=== PATIENT | female | born 1960 | race Caucasian/White ===

== ENCOUNTER 2020-04-13 11:17 | Outpatient (REF) | payer OTHER, SELFPAY ==
[2020-04-13 13:10] LABS: COVID-19 Test Negative (Negative); IDNOW Serial# 55D5AD1C
== END 2020-04-13 11:18 | disposition home or self-care (01) ==
LOC: HO.EMPCOV 11:17
PROVIDERS: Visit Provider Internal Medicine
DX: Z20.828 Contact with and (suspected) exposure to other viral communicable diseases (principal)
CPT/HCPCS: 87635; C9803

== ENCOUNTER 2020-04-27 13:25 | Outpatient (REF) | payer OTHER, SELFPAY ==
[2020-04-27 14:01] LABS: COVID-19 Test Negative (Negative); IDNOW Serial# 55D5AD1C
== END 2020-04-27 13:26 | disposition home or self-care (01) ==
LOC: HO.LAB 13:25
PROVIDERS: PCP Internal Medicine; Visit Provider Internal Medicine
DX: Z20.828 Contact with and (suspected) exposure to other viral communicable diseases (principal)
CPT/HCPCS: 87635; C9803

== ENCOUNTER 2020-05-04 09:40 | Outpatient (REF) | payer OTHER, SELFPAY ==
[2020-05-04 10:31] LABS: COVID-19 Test Negative (Negative)
== END 2020-05-04 09:41 | disposition home or self-care (01) ==
LOC: HO.EMPCOV 09:40
PROVIDERS: Visit Provider Internal Medicine
DX: Z20.828 Contact with and (suspected) exposure to other viral communicable diseases (principal)
CPT/HCPCS: 87635; C9803

== ENCOUNTER 2020-06-11 09:58 | Outpatient (REF) | payer OTHER, SELFPAY ==
[2020-06-11 10:40] LABS: COVID-19 Test Negative (Negative)
== END 2020-06-11 09:59 | disposition home or self-care (01) ==
LOC: HO.EMPCOV 09:58
PROVIDERS: PCP Internal Medicine; Visit Provider Internal Medicine
DX: Z20.822 Contact with and (suspected) exposure to COVID-19 (principal)
CPT/HCPCS: 36415; 87635; C9803

== ENCOUNTER 2020-07-10 09:11 | Outpatient (REF) | payer OTHER, SELFPAY ==
[2020-07-17 05:02] LABS: HPV mRNA E6/E7 rflx Not Detected (Not Detected)
== END 2020-07-10 09:12 | disposition home or self-care (01) ==
LOC: HO.LNP 09:11
PROVIDERS: Visit Provider Obstetrics & Gynecology
DX: Z01.419 Encounter for gynecological examination (general) (routine) without abnormal findings (principal); Z11.51 Encounter for screening for human papillomavirus (HPV)
CPT/HCPCS: 87624; 88142

== ENCOUNTER 2020-08-26 08:02 | Outpatient (REF) | payer OTHER, SELFPAY ==
[2020-08-26 08:21] LABS: COVID-19 Test Negative (Negative); IDNOW Serial# 55D5AD1C
== END 2020-08-26 08:03 | disposition home or self-care (01) ==
LOC: HO.EMPCOV 08:02
PROVIDERS: Visit Provider Internal Medicine
DX: Z20.822 Contact with and (suspected) exposure to COVID-19 (principal)
CPT/HCPCS: 36415; 87635; C9803

== ENCOUNTER 2020-11-04 07:32 | Outpatient (REF) | payer OTHER, SELFPAY ==
[2020-11-04 08:08] LABS: Hematocrit 42.4 % (37-47); Mean Corpuscular Hemoglobin 28.6 pg (27.0-33.0); Mean Corpuscular Volume 86.7 fL (80-98); Mean Platelet Volume 11.3 fL (9.4-12.3); Platelet Count 213 X10*3/uL (160-400); Red Blood Count 4.89 X10*6/uL (4.20-5.50); Red Cell Distribution Width 14.6 % (11.0-16.0); White Blood Count 6.4 X10*3/uL (4.8-10.8)
[2020-11-04 08:30] LABS: Alanine Aminotransferase 14 U/L (0-31); Albumin Level 4.2 g/dL (3.5-5.0); Alkaline Phosphatase 112 U/L (39-117); Anion Gap 11 (12-20); Aspartate Amino Transferase 16 U/L (5-31); Bilirubin Total 0.3 mg/dL (0.0-1.0); Blood Urea Nitrogen 23 mg/dL (9-16); Calcium 9.1 mg/dL (8.4-10.2); Carbon Dioxide 25 mmol/L (22-29); Chloride 108 mmol/L (96-108); Cholesterol 188 mg/dL; Estimated Glomerular Filt Rate 56; Glucose Fasting 85 mg/dL (60-99); HDL Cholesterol 66 mg/dL; LDL Cholesterol Calculated 102 mg/dl; Potassium 4.4 mmol/L (3.3-5.1); Sodium 140 mmol/L (135-145); Triglycerides 102 mg/dL
[2020-11-04 08:37] LABS: Glucose Urine UA NEG (NEG); Leukocyte Esterase Urine 1+ (NEG); Nitrite Urine NEG (NEG); Urine Blood NEG (NEG); Urine Ketones NEG (NEG); Urine Protein TRACE MG/DL (NEG-TRACE)
[2020-11-04 08:42] LABS: Appearance Urine CLEAR; Color Urine YELLOW
[2020-11-04 08:45] LABS: Thyroid Stimulating Hormone 1.72 uIU/mL (0.32-4.0)
[2020-11-04 09:14] LABS: Bacteria Urine TRACE /LPF; Squamous Epithelial Cell Urine 1+ /LPF
== END 2020-11-04 07:33 | disposition home or self-care (01) ==
LOC: HO.LAB 07:32
PROVIDERS: PCP Internal Medicine; Visit Provider Internal Medicine
DX: Z00.00 Encounter for general adult medical examination without abnormal findings (principal); E78.00 Pure hypercholesterolemia, unspecified; E03.9 Hypothyroidism, unspecified
CPT/HCPCS: 36415; 80053; 80061; 81001; 81003; 84443; 85027

== ENCOUNTER 2020-11-04 15:29 | Outpatient (REF) | payer OTHER, SELFPAY ==
--- NOTE | ~2020-11-04 | MM_ITS ---
EXAMINATION: MM SCREENING DIGITAL BREAST TOMOSYNTHESIS, BILATERAL CLINICAL INFORMATION: Screening. Asymptomatic. The lifetime risk of breast cancer based on the Tyrer-Cuzick Model is 4.5%. COMPARISON: Mammography: August 10, 2019 and studies dating back to February 17, 2012 TECHNIQUE: Digital breast tomosynthesis is performed in both the craniocaudal and mediolateral oblique views along with computer-aided detection (CAD). Synthesized 2D images are generated from the tomosynthesis. FINDINGS: The breasts are almost entirely fatty (ACR BI-RADS breast composition Category a). There are no significant masses, abnormal calcifications, or other abnormalities. MM/MM tomosynthesis screening BI IMPRESSION: There are no significant changes from prior study. ASSESSMENT: BI-RADS 1: Negative RECOMMENDATION: Routine annual mammography screening. This patient's information was entered into a reminder system with a target due date for their next mammogram.
== END 2020-11-04 15:30 | disposition home or self-care (01) ==
LOC: HO.MAMMO 15:29
PROVIDERS: PCP Internal Medicine; Visit Provider Obstetrics & Gynecology
DX: Z12.31 Encounter for screening mammogram for malignant neoplasm of breast (principal)
CPT/HCPCS: 77063; 77067

== ENCOUNTER → 2021-01-15 15:29 | Outpatient (BNVA) | payer OTHER, SELFPAY | PROVIDERS: PCP Internal Medicine; Visit Provider Nurse Practitioner Family ==

== ENCOUNTER → 2021-02-22 10:09 | Outpatient (BNVA) | payer SELFPAY | PROVIDERS: PCP Internal Medicine; Visit Provider Physician Assistant Medical ==

== ENCOUNTER 2021-03-16 07:51 | Day surgery (SDC) | payer OTHER, SELFPAY ==
--- NOTE | 2021-03-15 08:27 | HO.ANESPROP2 ---
Documented by User: Mariann Webb NP 03/15/21 08:28 HPI - Anesthesia Eval Consult details Narrative: 60yo F for Colonoscopy PMFSH Active Problems Active Problems: All Active Problems (Updated 03/10/21 @ 14:59 by Fransisca Banegas, SARAH) Hypothyroidism (Acute) Hypercholesterolemia (Acute) Annual physical exam (Acute) Past Medical History Medical History Adenocarcinoma of rectosigmoid junction Annual physical exam CKD (chronic kidney disease), stage III History of mammogram History of positive PPD Hypercholesterolemia Hypothyroidism Family History Family History Father Diabetes Mother Ruptured, aorta Surgical History Surgical History H/O colonoscopy Hx of bilateral breast reduction surgery S/P appy Social History Social History Housing: House Alcohol intake: current Alcohol intake frequency: holidays/special occasions only Patient Tobacco Use Status: Never used Tobacco e-Cigarette/Vaping Use: Never Used Second Hand Smoke Exposure: Yes Advance Directives: No Advance Directives Information Provided: Yes Current occupational status: employed Meds Allergies Allergy/AdvReac Type Severity Reaction Status Date / Time No Known Allergies Allergy Verified 02/27/21 09:45 Home Medications Medication Instructions Recorded Confirmed Last Taken Type tzfriizogakz-Yz-lvep-minerals (One 1 tab PO DAILY 02/27/21 03/10/21 Unknown History Daily Calcium/Iron) vitamins A,C,S-cstk-mhatym 14,320 1 cap PO BID 02/27/21 03/10/21 Unknown History unit-226 mg-200 unit capsule (PreserVision AREDS) Exam Exam Date and Time: March 15, [id number] Pertinent Lab Results Pertinent Lab Results: Laboratory Tests 11/04/20 11/04/20 07:07 07:07 WBC 6.4 Hgb 14.0 Hct 42.4 Plt Count 213 Sodium 140 Potassium 4.4 Chloride 108 Carbon Dioxide 25 BUN 23 H Creatinine 1.01 Assessment and Plan Assessment Anesthesia Assessment: Chart Reviewed Documented by User: Beba Chamorro MD 03/16/21 08:16 PMFSH Past Medical History Medical History Adenocarcinoma of rectosigmoid junction Annual physical exam CKD (chronic kidney disease), stage III History of mammogram History of positive PPD Hypercholesterolemia Hypothyroidism Family History Family History Father Diabetes Mother Ruptured, aorta Surgical History Surgical History H/O colonoscopy Hx of bilateral breast reduction surgery S/P appy Social History Social History Housing: House Alcohol intake: current Alcohol intake frequency: holidays/special occasions only Patient Tobacco Use Status: Never used Tobacco e-Cigarette/Vaping Use: Never Used Second Hand Smoke Exposure: Yes Advance Directives: No Advance Directives Information Provided: Yes Current occupational status: employed Meds Allergies Allergy/AdvReac Type Severity Reaction Status Date / Time No Known Allergies Allergy Verified 02/27/21 09:45 Home Medications Medication Instructions Recorded Confirmed Last Taken Type hubympmtprbj-Jv-qdoj-minerals (One 1 tab PO DAILY 02/27/21 03/10/21 Unknown History Daily Calcium/Iron) vitamins A,C,C-cfeb-jmeuxw 14,320 1 cap PO BID 02/27/21 03/10/21 Unknown History unit-226 mg-200 unit capsule (PreserVision AREDS) Exam Airway Mallampati Class: II TM Dist: >3cm Neck ROM: Full
[2021-03-16 08:14] VITALS: BP 137/77; PULSE 82; RESP 16; TEMP 35.9; O2SAT 97; BMI 23.6
--- NOTE | 2021-03-16 08:23 | MHC.SHP ---
Pre-Procedural Eval Section A Date of Service: 03/16/21 The patient is an INPATIENT: No The History & Physical has been completed within 30 days and I have reviewed it.: No Section B Chief Complaint: Screening Details of Present Illness: Colon cancer screening Relevant Family History (Specify if Yes): No Relevant Social History: None Present Medications: see Short Stay Collaborative assessment Medical History: Significant History (Adenocarcinoma of rectosigmoid junction Annual physical exam CKD (chronic kidney disease), stage III History of mammogram Hypercholesterolemia Hypothyroidism) History of Previous Operations: Relevant previous surgery/procedure and date(s) (H/O colonoscopy Hx of bilateral breast reduction surgery S/P appy) Allergies: Allergies Allergy/AdvReac Type Severity Reaction Status Date / Time No Known Allergies Allergy Verified 02/27/21 09:45 Review of Systems Sugical H&P ROS: Negative: Constitution, Cardiovascular, Respiratory and Gastrointestinal Exam Surgical H&P Exam: Normal: Heart, Normal: Lungs, Normal: Extremities and Normal: Abdomen Plan Diagnosis/Plan: Unchanged I have reviewed the history and physical and performed a pertinent physical examination on my patient. No changes have occurred unless specified.
[2021-03-16] MEDS: Lactated Ringers 1,000 ML 100 ML IVCONT (08:24)
--- NOTE | 2021-03-16 08:25 | PC.NURSE ---
h/o CKD stage 3, Dr Jones aware, continue with IV LR,
--- NOTE | 2021-03-16 08:25 | W.PM.OPN ---
Operative Note Operative Note Date of Service: 03/16/21 Narrative: Pre-op diagnosis:?Colon cancer screening, history of colon polyps, history of adenocarcinoma arising in a polyp in 2013 Post-op diagnosis:?other (Colon polyp, diverticulosis, hemorrhoids) Procedure:? COLONOSCOPY TILL CECUM WITH SNARE POLYPECTOMY AND SUBMUCOSAL INJECTION Consent: Indications for the procedure and potential complications of bleeding, perforation, reaction to medications and missed diagnosis were discussed with the patient and informed consent was obtained. Instrument: Olympus PCF H 190 L variable stiffness pediatric colonoscope Monitoring: Vital signs and clinical assessment, intermittent blood pressure monitoring, continuous EKG monitoring, Pulse oximetry and Carbon Dioxide monitoring were done throughout the procedure. Colon withdrawl time was 25 minutes. Procedure: The patient was placed in the left lateral decubitis position and pre-procedure medications were administered. After a digital rectal examination of the ano-rectum, the video colonoscope was inserted into the rectum and advanced through the colon to the cecum. The colonoscope was slowly withdrawn in a retrograde panoramic fashion and the colon mucosa was carefully examined including a retroflexed view of the rectum. Findings and interventions are described below. Procedure Difficulty:? Colon was long and tortuous and there was some loop formation. A sharp turn at 25 cms was navigated with some difficulty Findings: Terminal Ileum: Not evaluated Cecum:? Normal Ascending Colon:? A 2 x 2 cms flat polyp at 75 cms (mid AC) raised with 10 cc of Orise solution (submucosal injection) and removed with a hot snare.? Polypectomy site was marked with Candis ink. ? Scattered moderate diverticulosis Transverse Colon:? Scattered moderate diverticulosis Descending Colon:? Scattered moderate diverticulosis Sigmoid Colon:? Severe diverticulosis with luminal narrowing Rectum:? Normal Ano-rectum:? Large internal hemorrhoids Colon preparation:? Good? Impression and Post Procedure Diagnosis: Colonoscopy Findings: One medium sized polyp removed Moderate diverticulosis seen in the entire colon Large hemorrhoids on retroflexed exam. Plan: Await pathology results Patient has an appointment on 04/16/21 in the GI Clinic with ? Adelia Collier FNP-ANA . Repeat Colonoscopy interval based on path results - in 1 years if polyp is adenomatous to check polypectomy site in the AC.. Above findings were reviewed with the patient and colon polyps and diverticulosis handouts were given in the discharge area Surgeon:?Alonso Roberto MD Anesthesia:?MAC Was an Hand Cigar Maker used for this Procedure?:?Yes Hand Cigar Maker:?Tiera Cochran Estimated blood loss (mL):?0 Pathology:?other ( A. ASCENDING COLON POLYP AT 75 WITH ORISE) Condition:?stable Disposition:?PACU
[2021-03-16 09:46] VITALS: BP 111/64; PULSE 74; RESP 20; TEMP 36.9; O2SAT 98
[2021-03-16 10:00] VITALS: BP 118/79; PULSE 71; RESP 20; O2SAT 99
[2021-03-16 10:15] VITALS: BP 128/80; PULSE 74; RESP 20; TEMP 36.9; O2SAT 99
== END 2021-03-16 11:50 | disposition home or self-care (01) ==
PROVIDERS: PCP Internal Medicine; Visit Provider Internal Medicine Gastroenterology
PROC: 0DJD8ZZ Inspection of Lower Intestinal Tract, Via Natural or Artificial Opening Endoscopic (ICD-10-PCS; CPT 45378; principal; 2021-03-16 09:00)
DX: Z12.11 Encounter for screening for malignant neoplasm of colon (principal); Z85.038 Personal history of other malignant neoplasm of large intestine; Z86.010 Personal history of colon polyps; D12.4 Benign neoplasm of descending colon; K57.30 Diverticulosis of large intestine without perforation or abscess without bleeding; K64.8 Other hemorrhoids; N18.30 Chronic kidney disease, stage 3 unspecified; E78.00 Pure hypercholesterolemia, unspecified; E03.9 Hypothyroidism, unspecified; Z79.899 Other long term (current) drug therapy
CPT/HCPCS: 45385; 45381; 88305

== ENCOUNTER → 2021-05-17 08:15 | Outpatient (BNVA) | payer OTHER, SELFPAY | PROVIDERS: PCP Internal Medicine; Referring Provider Internal Medicine; Visit Provider Nurse Practitioner Family ==

== ENCOUNTER 2021-07-12 09:30 | Outpatient (REF) | payer OTHER, SELFPAY | END 2021-07-12 09:31 | disposition home or self-care (01) | LOC: HO.LNP 09:30 | PROVIDERS: Visit Provider Obstetrics & Gynecology | DX: Z01.419 Encounter for gynecological examination (general) (routine) without abnormal findings (principal) | CPT/HCPCS: 88142 ==

== ENCOUNTER 2021-08-16 11:52 | Outpatient (REF) | payer OTHER, SELFPAY | END 2021-08-16 11:53 | disposition home or self-care (01) | LOC: HO.LNP 11:52 | PROVIDERS: Visit Provider Obstetrics & Gynecology | DX: R87.615 Unsatisfactory cytologic smear of cervix (principal) | CPT/HCPCS: 87624; 88142 ==

== ENCOUNTER 2021-09-14 06:50 | Emergency (ER) | payer OTHER, SELFPAY ==
--- NOTE | ~2021-09-14 | XR_ITS ---
EXAMINATION: XR CHEST CLINICAL INFORMATION: Covid positive. Syncope. COMPARISON: Previous chest x-ray from 2012 TECHNIQUE: Frontal view of the chest was obtained. FINDINGS: No significant abnormality is noted involving the heart, lungs, mediastinum, bony thorax or soft tissues. XR/XR chest 1V IMPRESSION: Unremarkable examination.
[2021-09-14 07:16] VITALS: BP 126/84; PULSE 99; RESP 16; TEMP 37.2; O2SAT 96; BMI 23.4
[2021-09-14 07:44] LABS: COVID-19 Test Positive (Negative)
[2021-09-14 07:53] LABS: IDNOW Serial# 16C4AD1C; Influenza A Negative (Negative); Influenza B2 Negative (Negative)
--- NOTE | 2021-09-14 07:59 | ECG_ITS ---
Test Reason : SYNCOPE Blood Pressure : / mmHG Vent. Rate : 096 BPM Atrial Rate : 096 BPM P-R Int : 120 ms QRS Dur : 074 ms QT Int : 332 ms P-R-T Axes : 038 021 011 degrees QTc Int : 419 ms Normal sinus rhythm Normal ECG When compared with ECG of 04-MAY-2012 10:12, No significant change was found Referred By: Iva Varela Electronically Signed By:LISETTE ESPAÑA MD
--- NOTE | 2021-09-14 08:00 | ED_ITS ---
HPI - General Adult General Chief complaint: General Medical Stated complaint: dizzy & nauseas, headache, sore throat Time Seen by Provider: 09/14/21 07:59 Source: patient and family () Mode of arrival: ambulatory Limitations: no limitations History of Present Illness HPI narrative: 61-year-old female walked in for evaluation after having syncope fall episode. Patient's symptoms started 2 days ago with sore throat, body ache, headache, generalized weakness. Patient took 2 COVID vaccination and 1 booster, decline recent exposure to sick contacts. Claim that she has been hydrating herself well, decline diarrhea. Patient was having breakfast with her today when she felt lightheadedness then she passed out patient do not recall the event. Patient had this symptoms happen before when she had sinus infection. Otherwise patient declined SOB, CP, coughing, nausea, or vomiting. Related Data Home Medications Medication Instructions Recorded Confirmed vfrbgkxxqysv-Km-wbrb-minerals (One 1 tab PO DAILY 02/27/21 03/10/21 Daily Calcium/Iron) vitamins A,C,N-pwty-jdakpw 14,320 1 cap PO BID 02/27/21 03/10/21 unit-226 mg-200 unit capsule (PreserVision AREDS) Previous Rx's Medication Instructions Recorded levothyroxine 50 mcg tablet 75 mcg PO DAILY #135 tab 07/27/21 atorvastatin 20 mg tablet 20 mg PO DAILY #90 tab 09/13/21 Allergies Allergy/AdvReac Type Severity Reaction Status Date / Time No Known Allergies Allergy Verified 05/17/21 08:32 Review of Systems Review of Systems: All other systems are reviewed and are negative Constitutional: Reports as per HPI and Reports no additional constitutional complaints Eyes: Reports as per HPI and Reports no additional eye complaints Reports system reviewed and no additional complaints, except as documented Cardiovascular: Reports as per HPI and Reports no additional cardiovascular complaints Respiratory: Reports as per HPI and Reports no additional respiratory complaints Gastrointestinal: Reports as per HPI and Reports no additional gastrointestinal complaints Genitourinary: Reports no additional female genitourinary complaints Musculoskeletal: Reports no additional musculoskeletal complaints Skin/Breast: Reports system reviewed and no additional complaints, except as docu Psychiatric: Reports no additional psychiatric complaints Endocrine: Reports no additional endocrine complaints Hematologic/Lymphatic: Reports no additional hematologic/lymphatic complaints Allergic/Immunologic: Reports no additional allergic/immunologic complaints Reports system reviewed and no additional complaints, except as documented and Reports Abnormal speech present PMFSH Past Medical History Medical History Adenocarcinoma of rectosigmoid junction Annual physical exam CKD (chronic kidney disease), stage III History of mammogram History of positive PPD Hypercholesterolemia Hypothyroidism Surgical History H/O colonoscopy Hx of bilateral breast reduction surgery S/P appy Family History Family History Father Diabetes Mother Ruptured, aorta Social History Social History Housing: House Alcohol intake: current Alcohol intake frequency: holidays/special occasions only Patient Tobacco Use Status: Never used Tobacco e-Cigarette/Vaping Use: Never Used Second Hand Smoke Exposure: Yes Advance Directives: No Advance Directives Information Provided: No Current occupational status: employed Physical Exam ED Vital Signs: Vital Signs - 24 hr 09/14/21 07:16 09/14/21 09:07 Temperature 98.9 F Pulse Rate 99 85 Respiratory Rate 16 16 Blood Pressure 126/84 129/92 H Pulse Oximetry 96 98 BMI result Body Mass Index 23.4 Vital signs have been reviewed as appeared to be correct. Blood pressure normal. Heart rate normal. Respiration rate normal. Temperature normal. Oxygen saturation normal. Appearance: Alert. Oriented X3. No acute distress. Head: Normal external exam. Normocephalic. Atraumatic. No Saleh signs noted. No raccoon eyes noted Eyes: PERRLA. EOMI. Conjunctiva and sclera normal. Eyelids normal. ENT: TM's Normal. Pharynx normal. Uvula midline. Moist mucous membranes. No trismus noted. No drooling noted. No muffled voice noted. Neck: Normal inspection. Neck supple. FROM. No adenopathy. Thyroid Normal. No meningeal signs. No neck mass noted. CVS: Normal heart rate and rhythm. Heart sound normal. No murmurs noted. Pulses normal throughout. Respiratory: No respiratory distress. Painless inspiration. Breath sounds normal. No wheezes/rales/rhonchi noted. Chest nontender. No accessory muscle usage noted or decreased air movement noted. Abdomen: Soft and nontender. Bowel sounds normal in all 4 quadrants. No distention noted. No organomegaly noted. No visible injury noted. Back: No CVA tenderness. Full range of motion noted. Skin: Skin warm and dry. Normal skin color. Normal skin turgor. No rashes/lesions/lacerations noted. Extremities: No lower extremity edema. Extremities exhibit normal range of motion. Extremities nontender. Neuro: Oriented X 3. Cranial nerve exam: II-XII are grossly intact No motor deficit. No sensory deficit. Reflexes normal. Course Course Course Narrative: Assessment and plan. 61-year-old female came in for evaluation after a syncopal episode this morning witnessed by her , patient also had 2 days of flu-like symptoms and patient tested positive for COVID, otherwise stable vital signs, patient feels better after IV fluid hydration, unremarkable EKG and cardiac enzymes. Patient was instructed to have 10 days quarantine (patient work and health care), frequent hand washing, use face mask, keep social distancing. Medical Decision Making Lab Data Lab results reviewed: Yes I reviewed the patient's lab results. Result diagrams: 09/14/21 09:06 09/14/21 09:06 Labs: Lab Results 09/14/21 09/14/21 09/14/21 Range/Units 07:27 07:27 09:06 WBC 8.0 (4.8-10.8) X10*3/uL RBC 5.06 (4.20-5.50) X10*6/uL Hgb 14.4 (12.0-16.0) g/dl Hct 43.5 (37.0-47.0) % MCV 86.0 (80.0-98.0) fL MCH 28.5 (27.0-33.0) pg MCHC 33.1 (31.0-35.0) g/dl RDW 15.1 (11.0-16.0) % Plt Count 201 (160-400) X10*3/uL MPV 11.1 (9.4-12.3) fL Immature Gran % (Auto) 0.4 (0.0-0.4) % Neut % (Auto) 77.8 H (45-73) % Lymph % (Auto) 12.1 L (20-40) % Patrick % (Auto) 8.5 (2-11) % Eos % (Auto) 0.7 (0-4) % Baso % (Auto) 0.5 (0-2) % Lymph # (Auto) 1.0 L (1.2-4.9) X10*3/uL Patrick # (Auto) 0.7 (0.1-1.2) X10*3/uL Eos # (Auto) 0.1 (0.0-0.4) X10*3/uL Baso # (Auto) 0.0 (0.0-0.2) X10*3/uL Abs Immat Gran (auto) 0.03 (0.00-0.03) X10*3/uL Absolute Neuts (auto) 6.2 (2.0-8.3) x10*3/uL Absolute Nucleated RBC 0.000 (0.0-0.012) X10*3/uL Nucleated RBC % (auto) 0.0 (0.0-0.2) /100WBC Sodium (135-145) mmol/L Potassium (3.3-5.1) mmol/L Chloride (96-108) mmol/L Carbon Dioxide (22-29) mmol/L Anion Gap (12-20) BUN (9-16) mg/dL Creatinine (0.5-1.4) mg/dL Estim Creat Clear Calc Estimated GFR Random Glucose (60-115) mg/dL Calcium (8.4-10.2) mg/dL Total Bilirubin (0.0-1.0) mg/dL Direct Bilirubin (0.0-0.5) mg/dL AST (5-31) U/L ALT (0-31) U/L Alkaline Phosphatase (39-117) U/L Troponin I High Sens (<3.5-17.0) ng/L Total Protein (6.5-8.0) g/dL Albumin (3.5-5.0) g/dL Lipase (8-78) U/L Urine Color Urine Appearance Urine pH (5.0-8.0) Ur Specific [place] (1.005-1.025) Urine Protein (NEG-TRACE) MG/DL Urine Glucose (UA) (NEG) MG/DL Urine Ketones (NEG) MG/DL Urine Blood (NEG) Urine Nitrite (NEG) Ur Leukocyte Esterase (NEG) Urine Test (NEGATIVE) COVID-19 (AWILDA) Positive A (Negative) COVID-19 Clin Com See Note Influenza Type A (APRIL) Negative (Negative) Influenza Type B (APRIL) Negative (Negative) Influenza A & B Note See Note 09/14/21 09/14/21 09/14/21 Range/Units 09:06 09:06 09:18 WBC (4.8-10.8) X10*3/uL RBC (4.20-5.50) X10*6/uL Hgb (12.0-16.0) g/dl Hct (37.0-47.0) % MCV (80.0-98.0) fL MCH (27.0-33.0) pg MCHC (31.0-35.0) g/dl RDW (11.0-16.0) % Plt Count (160-400) X10*3/uL MPV (9.4-12.3) fL Immature Gran % (Auto) (0.0-0.4) % Neut % (Auto) (45-73) % Lymph % (Auto) (20-40) % Patrick % (Auto) (2-11) % Eos % (Auto) (0-4) % Baso % (Auto) (0-2) % Lymph # (Auto) (1.2-4.9) X10*3/uL Patrick # (Auto) (0.1-1.2) X10*3/uL Eos # (Auto) (0.0-0.4) X10*3/uL Baso # (Auto) (0.0-0.2) X10*3/uL Abs Immat Gran (auto) (0.00-0.03) X10*3/uL Absolute Neuts (auto) (2.0-8.3) x10*3/uL Absolute Nucleated RBC (0.0-0.012) X10*3/uL Nucleated RBC % (auto) (0.0-0.2) /100WBC Sodium 138 (135-145) mmol/L Potassium 4.7 (3.3-5.1) mmol/L Chloride 104 (96-108) mmol/L Carbon Dioxide 27 (22-29) mmol/L Anion Gap 12 (12-20) BUN 19 H (9-16) mg/dL Creatinine 1.13 (0.5-1.4) mg/dL Estim Creat Clear Calc 38.4 Estimated GFR 49 Random Glucose 98 (60-115) mg/dL Calcium 9.7 D (8.4-10.2) mg/dL Total Bilirubin 0.5 (0.0-1.0) mg/dL Direct Bilirubin 0.2 (0.0-0.5) mg/dL AST 30 D (5-31) U/L ALT 34 H (0-31) U/L Alkaline Phosphatase 119 H (39-117) U/L Troponin I High Sens 5.9 (<3.5-17.0) ng/L Total Protein 7.2 (6.5-8.0) g/dL Albumin 4.2 (3.5-5.0) g/dL Lipase 30 (8-78) U/L Urine Color YELLOW Urine Appearance CLEAR Urine pH 7.0 (5.0-8.0) Ur Specific [place] <= 1.005 (1.005-1.025) Urine Protein NEG (NEG-TRACE) MG/DL Urine Glucose (UA) NEG (NEG) MG/DL Urine Ketones NEG (NEG) MG/DL Urine Blood NEG (NEG) Urine Nitrite NEG (NEG) Ur Leukocyte Esterase NEG (NEG) Urine Test (NEGATIVE) COVID-19 (AWILDA) (Negative) COVID-19 Clin Com Influenza Type A (APRIL) (Negative) Influenza Type B (APRIL) (Negative) Influenza A & B Note 09/14/21 Range/Units 09:18 WBC (4.8-10.8) X10*3/uL RBC (4.20-5.50) X10*6/uL Hgb (12.0-16.0) g/dl Hct (37.0-47.0) % MCV (80.0-98.0) fL MCH (27.0-33.0) pg MCHC (31.0-35.0) g/dl RDW (11.0-16.0) % Plt Count (160-400) X10*3/uL MPV (9.4-12.3) fL Immature Gran % (Auto) (0.0-0.4) % Neut % (Auto) (45-73) % Lymph % (Auto) (20-40) % Patrick % (Auto) (2-11) % Eos % (Auto) (0-4) % Baso % (Auto) (0-2) % Lymph # (Auto) (1.2-4.9) X10*3/uL Patrick # (Auto) (0.1-1.2) X10*3/uL Eos # (Auto) (0.0-0.4) X10*3/uL Baso # (Auto) (0.0-0.2) X10*3/uL Abs Immat Gran (auto) (0.00-0.03) X10*3/uL Absolute Neuts (auto) (2.0-8.3) x10*3/uL Absolute Nucleated RBC (0.0-0.012) X10*3/uL Nucleated RBC % (auto) (0.0-0.2) /100WBC Sodium (135-145) mmol/L Potassium (3.3-5.1) mmol/L Chloride (96-108) mmol/L Carbon Dioxide (22-29) mmol/L Anion Gap (12-20) BUN (9-16) mg/dL Creatinine (0.5-1.4) mg/dL Estim Creat Clear Calc Estimated GFR Random Glucose (60-115) mg/dL Calcium (8.4-10.2) mg/dL Total Bilirubin (0.0-1.0) mg/dL Direct Bilirubin (0.0-0.5) mg/dL AST (5-31) U/L ALT (0-31) U/L Alkaline Phosphatase (39-117) U/L Troponin I High Sens (<3.5-17.0) ng/L Total Protein (6.5-8.0) g/dL Albumin (3.5-5.0) g/dL Lipase (8-78) U/L Urine Color Urine Appearance Urine pH (5.0-8.0) Ur Specific [place] (1.005-1.025) Urine Protein (NEG-TRACE) MG/DL Urine Glucose (UA) (NEG) MG/DL Urine Ketones (NEG) MG/DL Urine Blood (NEG) Urine Nitrite (NEG) Ur Leukocyte Esterase (NEG) Urine Test NEGATIVE (NEGATIVE) COVID-19 (AWILDA) (Negative) COVID-19 Clin Com Influenza Type A (APRIL) (Negative) Influenza Type B (APRIL) (Negative) Influenza A & B Note Imaging Data Chest x-ray: Attestation: I personally reviewed and interpreted this imaging study as follows: Radiologist's impression: Unremarkable examination ECG Data Attestation: I personally reviewed and interpreted this ECG as follows: Interpretation: Normal sinus rhythm at 96 beats per minute, normal axis deviation, normal intervals, no ST-T changes. Discharge Plan Discharge Clinical Impression: Syncope and collapse, COVID-19 virus infection Patient Disposition: Home, Self-Care Instructions: Covid-19 Viral Syndrome and Novel Coronavirus (ED) Hey/Ath Additional Instructions: Self quarantine for 10 days, use face mask at all times, frequent hand washing, keep social distancing with others. Prescriptions: No Action levothyroxine 50 mcg tablet 75 mcg PO DAILY Qty: 135 3RF atorvastatin 20 mg tablet 20 mg PO DAILY Qty: 90 3RF One Daily Calcium/Iron Tablet 1 tab PO DAILY 0RF PreserVision AREDS [id number] lfwv-yr-bzsj capsule 1 cap PO BID 0RF Referrals: Ashly Diaz MD [Primary Care Provider] - Stand Alone Forms: Work/School Release
[2021-09-14 09:07] VITALS: BP 129/92; PULSE 85; RESP 16; O2SAT 98
[2021-09-14] MEDS: 0.9 % Sodium Chloride 1,000 ML 999 ML IV (09:07)
[2021-09-14 09:13] LABS: MANUAL DIFF FLAG NO
[2021-09-14 09:15] LABS: Basophils Percent Auto 0.5 % (0-2); Eosinophils Absolute Auto 0.1 X10*3/uL (0.0-0.4); Eosinophils Percent Auto 0.7 % (0-4); Hematocrit 43.5 % (37.0-47.0); Hemoglobin 14.4 g/dl (12.0-16.0); Imm Gran Abs Auto 0.03 X10*3/uL (0.00-0.03); Imm Gran Pct Auto 0.4 % (0.0-0.4); Lymphocytes Percent Auto 12.1 % (20-40); Mean Corpuscular HGB Conc 33.1 g/dl (31.0-35.0); Mean Corpuscular Hemoglobin 28.5 pg (27.0-33.0); Mean Platelet Volume 11.1 fL (9.4-12.3); Monocytes Absolute Auto 0.7 X10*3/uL (0.1-1.2); Monocytes Percent Auto 8.5 % (2-11); Neutrophils Absolute Auto 6.2 x10*3/uL (2.0-8.3); Neutrophils Percent Auto 77.8 % (45-73); Platelet Count 201 X10*3/uL (160-400); Red Blood Count 5.06 X10*6/uL (4.20-5.50); Red Cell Distribution Width 15.1 % (11.0-16.0)
[2021-09-14] MEDS: Ibuprofen 600 MG TABLET PO (09:15)
[2021-09-14 09:26] LABS: Appearance Urine CLEAR; Color Urine YELLOW; Glucose Urine UA NEG (NEG); Leukocyte Esterase Urine NEG (NEG); Nitrite Urine NEG (NEG); Specific Gravity - Urine <= 1.005 (1.005-1.025); Urine Blood NEG (NEG); Urine Ketones NEG (NEG); Urine Protein NEG (NEG-TRACE)
[2021-09-14 09:29] LABS: UPreg QC Valid YES; Urine Pregnancy NEGATIVE (NEGATIVE)
[2021-09-14 09:32] LABS: Alanine Aminotransferase 34 U/L (0-31); Albumin Level 4.2 g/dL (3.5-5.0); Alkaline Phosphatase 119 U/L (39-117); Anion Gap 12 (12-20); Aspartate Amino Transferase 30 U/L (5-31); Bilirubin Direct 0.2 mg/dL (0.0-0.5); Bilirubin Total 0.5 mg/dL (0.0-1.0); Blood Urea Nitrogen 19 mg/dL (9-16); Calcium 9.7 mg/dL (8.4-10.2); Carbon Dioxide 27 mmol/L (22-29); Chloride 104 mmol/L (96-108); Creatinine Clr Calc Pharmacy 38.4; Estimated Glomerular Filt Rate 49; Glucose Random 98 mg/dL (60-115); Lipase 30 U/L (8-78); Potassium 4.7 mmol/L (3.3-5.1); Sodium 138 mmol/L (135-145); Total Protein 7.2 g/dL (6.5-8.0)
[2021-09-14 09:36] LABS: Troponin-I High Sensitivity 5.9 ng/L (<3.5-17.0)
--- NOTE | 2021-09-14 10:26 | PC.NURSE ---
NO RESPIRATORY DIFFICULTIES. SHE WAS STEADY WITH HER GAIT TO THE BATHROOM X2. DENIED DIZZINESS
[2021-09-14 10:37] LABS: B Type Natriuretic Peptide 28 pg/mL (<100)
== END 2021-09-14 10:27 | disposition home or self-care (01) ==
PROVIDERS: Emergency Provider Emergency Medicine; PCP Internal Medicine
DX: U07.1 COVID-19 (principal); R55 Syncope and collapse; R06.02 Shortness of breath; Z79.899 Other long term (current) drug therapy
CPT/HCPCS: 36415; 71045; 80048; 80076; 81003; 81025; 83690; 83880; 84484; 85025; 87502; 87635; 93005; 96360; 99284

== ENCOUNTER 2021-11-08 15:31 | Outpatient (REF) | payer OTHER, SELFPAY ==
--- NOTE | ~2021-11-08 | MM_ITS ---
EXAMINATION: MM SCREENING DIGITAL BREAST TOMOSYNTHESIS, BILATERAL CLINICAL INFORMATION: Screening. Asymptomatic. Remote reduction mammoplasty, 1995. Family history breast cancer, sister. The lifetime risk of breast cancer based on the Tyrer-Cuzick Model is 14%. COMPARISON: Mammography: 11/04/2020, 08/10/2019, 04/16/2018 TECHNIQUE: Digital breast tomosynthesis is performed in both the craniocaudal and mediolateral oblique views along with computer-aided detection (CAD). Synthesized 2D images are generated from the tomosynthesis. FINDINGS: The breasts are almost entirely fatty (ACR BI-RADS breast composition Category a). Background stromal and fibroglandular densities and minor scarring from remote mammoplasty are stable. There is no developing density or architectural abnormality. No abnormal calcifications. The axilla are unremarkable. MM/MM tomosynthesis screening BI IMPRESSION: No mammographic evidence of malignancy. ASSESSMENT: BI-RADS 1: Negative RECOMMENDATION: Routine annual mammography screening. This patient's information was entered into a reminder system with a target due date for their next mammogram.
== END 2021-11-08 15:32 | disposition home or self-care (01) ==
LOC: HO.MAMMO 15:31
PROVIDERS: PCP Internal Medicine; Visit Provider Obstetrics & Gynecology
DX: Z12.31 Encounter for screening mammogram for malignant neoplasm of breast (principal)
CPT/HCPCS: 77063; 77067

== ENCOUNTER 2021-12-02 06:44 | Emergency (ER) | payer OTHER, SELFPAY ==
[2021-12-02 06:47] VITALS: BP 134/84; PULSE 111; O2SAT 96
[2021-12-02 06:51] VITALS: BP 131/110; PULSE 99; RESP 18; TEMP 36.4; O2SAT 100; BMI 23.8
--- NOTE | 2021-12-02 06:55 | ED_ITS ---
HPI - Back Pain/Injury General Chief Complaint: Back Pain/Injury Stated Complaint: back spasms Time Seen by Provider: 12/02/21 06:47 Source: patient and old records reviewed Mode of arrival: EMS Limitations: no limitations History of Present Illness HPI Narrative: 61 yo female with hx of HLD, hypothyroidism, prior back issues, localized colon cancer 2013 (treated) with frequent colonoscopy surveillance no systemic treatment states she went to reach for something Monday and through her back into spasm. She denies IVDA, no blood thinners, no bowel or bladder incontinence. Has had similar issues in the past. Taking tylenol without relief. MD elicited complaint: back pain and back injury Pertinent past history: prior back pain Onset (ago): day(s) (4) Timing: progressively worsening Severity: severe Similar Symptoms Previously: Yes Quality: spasming Location: lumbar spine Radiation: right upper leg Exacerbating factors: immobilization Relieving factors: movement Context: while lifting and turning/twisting Associated symptoms: denies other symptoms Treatments prior to arrival: acetaminophen and other (wearing lumbar brace) Work related injury: No Related Data Home Medications Medication Instructions Recorded Confirmed gdshbrekeuxp-Es-ciza-minerals (One 1 tab PO DAILY 02/27/21 03/10/21 Daily Calcium/Iron) vitamins A,C,O-soms-egwdyv 14,320 1 cap PO BID 02/27/21 03/10/21 unit-226 mg-200 unit capsule (PreserVision AREDS) Previous Rx's Medication Instructions Recorded levothyroxine 50 mcg tablet 75 mcg PO DAILY #135 tabs 07/27/21 atorvastatin 20 mg tablet 20 mg PO DAILY #90 tabs 09/13/21 azithromycin 250 mg tablet 250 mg PO DAILY 6 days #6 tabs 09/16/21 baclofen 10 mg tablet 10 mg PO BEDTIME #10 tabs 12/01/21 morphine 15 mg immediate release 15 mg PO TID PRN pain #10 tabs 12/02/21 tablet ondansetron 4 mg disintegrating 4 mg PO Q8H PRN nausea and 12/02/21 tablet vomiting #20 tabs Allergies Allergy/AdvReac Type Severity Reaction Status Date / Time No Known Allergies Allergy Verified 05/17/21 08:32 Review of Systems Review of Systems: Constitutional : No Weight loss, No Fever, No Chills, ENT/Mouth : No Hearing loss, No Ear Pain, No Nasal Congestion, No Sinus Pain, No Hoarseness, No sore throat, No Rhinorrhea, No Swallowing Difficulty Cardiovascular : No Chest Pain, No SOB Respiratory : No Cough, No Dyspnea Gastrointestinal : No Nausea, No Vomiting, No Diarrhea, No abdominal Pain, No Hematochezia, No Melena Genitourinary : No Dysuria, No Urinary Frequency, No Hematuria, No Urinary Incontinence, Musculoskeletal : positive back pain Skin : No Skin Lesions, No rash Neuro : No Weakness, No Numbness, No Paresthesias, no loss of bowel or bladder incontinence, no saddle anesthesia All other systems reviewed and are negative [facility] Past Medical History Attestation statement: The following information was validated with the patient. Medical History Adenocarcinoma of rectosigmoid junction Annual physical exam CKD (chronic kidney disease), stage III History of mammogram History of positive PPD Hypercholesterolemia Hypothyroidism Surgical History H/O colonoscopy Hx of bilateral breast reduction surgery S/P appy Family History Family History Father Diabetes Mother Ruptured, aorta Social History Social History Housing: House Alcohol intake: current Alcohol intake frequency: does not drink Patient Tobacco Use Status: Never used Tobacco e-Cigarette/Vaping Use: Never Used Second Hand Smoke Exposure: Yes Use of substances other than those prescribed or required for medical reasons: No Advance Directives: No Advance Directives Information Provided: No Current occupational status: employed Physical Exam Vital Signs: Vital Signs: Last Vital Signs Temp 97.7 F 12/02/21 06:59 Pulse 75 12/02/21 09:17 Resp 13 12/02/21 09:17 BP 143/82 H 12/02/21 09:17 Pulse Ox 100 12/02/21 09:17 O2 Del Method 12/02/21 09:17 BMI result Body Mass Index 23.8 Appearance: Alert. Oriented X3. No acute distress. Eyes: Pupils equal, round and reactive to light. ENT: Pharynx normal. Neck: Normal inspection. Neck supple. CVS: Normal heart rate and rhythm. Pulses normal. Respiratory: No respiratory distress. Breath sounds normal. Abdomen: Soft and nontender. Wearing lumbar brace Skin: Skin warm and dry. Normal skin color. Normal skin turgor. Extremities: No lower extremity edema. No calf ttp Neuro: Oriented X 3. No motor deficit. No sensory deficit. SILT inner thigh, 2+ DTR in patella and achilles, L5 5/5 bilaterally, any movement of LE causes pain in back Course Course Course Narrative: feels better stable for DC at this time will refer to PCP has baclofen Rx will place on short course pain medications and lidocaine patches MDM - Back Pain/Injury MDM Narrative Medical decision making narrative: 61 yo female with hx of HLD, hypothyroidism, prior back issues, localized colon cancer 2013 (treated) with frequent colonoscopy surveillance here with c/o low back pain brought on by reaching/twisting movement. She is NV intact, has no b/b incontinence/saddle anesthesia or CE symptoms. At this time will treat pain and obtain basic labs. Her colon cancer is well managed and has not had recurrence this seems more MSK in nature. Dispo per results and clinical improvement. Lab Data Result diagrams: 12/02/21 07:15 12/02/21 07:15 Labs: Lab Results 12/02/21 12/02/21 Range/Units 07:15 07:15 WBC 10.0 (4.8-10.8) X10*3/uL RBC 5.15 (4.20-5.50) X10*6/uL Hgb 14.7 (12.0-16.0) g/dl Hct 43.3 (37.0-47.0) % MCV 84.1 (80.0-98.0) fL MCH 28.5 (27.0-33.0) pg MCHC 33.9 (31.0-35.0) g/dl RDW 14.6 (11.0-16.0) % Plt Count 215 (160-400) X10*3/uL MPV 10.9 (9.4-12.3) fL Immature Gran % (Auto) 0.3 (0.0-0.4) % Neut % (Auto) 69.4 (45-73) % Lymph % (Auto) 24.0 (20-40) % [place] % (Auto) 5.0 (2-11) % Eos % (Auto) 1.0 (0-4) % Baso % (Auto) 0.3 (0-2) % Lymph # (Auto) 2.4 (1.2-4.9) X10*3/uL [place] # (Auto) 0.5 (0.1-1.2) X10*3/uL Eos # (Auto) 0.1 (0.0-0.4) X10*3/uL Baso # (Auto) 0.0 (0.0-0.2) X10*3/uL Abs Immat Gran (auto) 0.03 (0.00-0.03) X10*3/uL Absolute Neuts (auto) 6.9 (2.0-8.3) x10*3/uL Absolute Nucleated RBC 0.000 (0.0-0.012) X10*3/uL Nucleated RBC % (auto) 0.0 (0.0-0.2) /100WBC Sodium 140 (135-145) mmol/L Potassium 3.9 (3.3-5.1) mmol/L Chloride 110 H (96-108) mmol/L Carbon Dioxide 17 L (22-29) mmol/L Anion Gap 17 (12-20) BUN 22 H (9-16) mg/dL Creatinine 1.17 (0.5-1.4) mg/dL Estim Creat Clear Calc 40.4 Estimated GFR 47 Random Glucose 122 H (60-115) mg/dL Calcium 8.9 D (8.4-10.2) mg/dL Magnesium 1.9 (1.6-2.6) mg/dL Discharge Plan Discharge Clinical Impression: Back muscle spasm Patient Disposition: Home, Self-Care Instructions: Muscle Spasm (ED), Back Pain (ED) Additional Instructions: return to ED for any worsening symptoms or concerns Prescriptions: New morphine 15 mg tablet 15 mg PO TID PRN (Reason: pain) Qty: 10 0RF Rx Instructions: partial fill okay; Partial Fill upon patient request. ondansetron 4 mg tablet,disintegrating 4 mg PO Q8H PRN (Reason: nausea and vomiting) Qty: 20 0RF No Action levothyroxine 50 mcg tablet 75 mcg PO DAILY Qty: 135 3RF atorvastatin 20 mg tablet 20 mg PO DAILY Qty: 90 3RF azithromycin 250 mg tablet 250 mg PO DAILY 6 Days Qty: 6 0RF Rx Instructions: start on day 2 of therapy baclofen 10 mg tablet 10 mg PO BEDTIME Qty: 10 0RF One Daily Calcium/Iron Tablet 1 tab PO DAILY PreserVision AREDS 14,320226-200 jybv-ba-ivuv capsule 1 cap PO BID Referrals: Ashly Diaz MD [Primary Care Provider] - 2 days (if not better) Stand Alone Forms: Work/School Release
[2021-12-02 06:59] VITALS: BP 151/88; PULSE 93; RESP 12; TEMP 36.5; O2SAT 100
[2021-12-02 07:20] LABS: MANUAL DIFF FLAG NO
[2021-12-02 07:21] LABS: Basophils Percent Auto 0.3 % (0-2); Eosinophils Absolute Auto 0.1 X10*3/uL (0.0-0.4); Hematocrit 43.3 % (37.0-47.0); Hemoglobin 14.7 g/dl (12.0-16.0); Imm Gran Abs Auto 0.03 X10*3/uL (0.00-0.03); Imm Gran Pct Auto 0.3 % (0.0-0.4); Lymphocytes Absolute Auto 2.4 X10*3/uL (1.2-4.9); Mean Corpuscular HGB Conc 33.9 g/dl (31.0-35.0); Mean Corpuscular Hemoglobin 28.5 pg (27.0-33.0); Mean Corpuscular Volume 84.1 fL (80.0-98.0); Mean Platelet Volume 10.9 fL (9.4-12.3); Monocytes Absolute Auto 0.5 X10*3/uL (0.1-1.2); Neutrophils Absolute Auto 6.9 x10*3/uL (2.0-8.3); Neutrophils Percent Auto 69.4 % (45-73); Platelet Count 215 X10*3/uL (160-400); Red Blood Count 5.15 X10*6/uL (4.20-5.50); Red Cell Distribution Width 14.6 % (11.0-16.0)
[2021-12-02] MEDS: diazePAM 10 MG/2 ML CARTRIDGE 2.5 MG IVPUSH (07:24)
[2021-12-02] MEDS: Morphine Sulfate 2 MG/ML CARTRIDGE IVPUSH (07:26)
[2021-12-02] MEDS: 0.9 % Sodium Chloride 1,000 ML 999 ML IV (07:27)
[2021-12-02 07:44] LABS: Anion Gap 17 (12-20); Blood Urea Nitrogen 22 mg/dL (9-16); Calcium 8.9 mg/dL (8.4-10.2); Carbon Dioxide 17 mmol/L (22-29); Chloride 110 mmol/L (96-108); Creatinine Clr Calc Pharmacy 40.4; Estimated Glomerular Filt Rate 47; Glucose Random 122 mg/dL (60-115); Magnesium 1.9 mg/dL (1.6-2.6); Potassium 3.9 mmol/L (3.3-5.1); Sodium 140 mmol/L (135-145)
[2021-12-02] MEDS: Ketorolac Tromethamine 15 MG/ML VIAL IVPUSH (08:33)
[2021-12-02] MEDS: Lidocaine 4 % Patch ADH..PATCH 1 PATCH TRANSDERMA (08:33)
[2021-12-02 09:17] VITALS: BP 143/82; PULSE 75; RESP 13; O2SAT 100
--- NOTE | 2021-12-02 09:54 | PC.NURSE ---
pt did get out of with lost of encouragement, took few very slow steps, but keeps saying pain is 10/10 after all the medications, originally pt reports pain at 13/10. md dixon
[2021-12-02] MEDS: Acetaminophen 325 MG TABLET 650 MG PO (10:13)
[2021-12-02] MEDS: oxyCODONE HCl Immed Release 5 MG TABLET 10 MG PO (10:13)
--- NOTE | 2021-12-02 10:55 | PC.NURSE ---
pt reports feeling a little better pain at 8/10
== END 2021-12-02 12:24 | disposition home or self-care (01) ==
PROVIDERS: Emergency Provider Emergency Medicine; PCP Internal Medicine
DX: M62.830 Muscle spasm of back (principal); M54.50 Low back pain, unspecified; Z79.899 Other long term (current) drug therapy
CPT/HCPCS: 36415; 80048; 83735; 85025; 96374; 96375; 99284; J1885; J2270; J3360

== ENCOUNTER 2021-12-28 05:58 | Outpatient (REF) | payer OTHER, SELFPAY ==
--- NOTE | ~2021-12-28 | XR_ITS ---
EXAMINATION: XR LUMBOSACRAL SPINE CLINICAL INFORMATION: Sciatica COMPARISON: None TECHNIQUE: Three views of the lumbosacral spine. FINDINGS: There is normal lumbar lordosis. The vertebral heights and alignment is normal. There is loss of L4-L5 disc height. Rest the disc heights are normal. No visible acute fracture, dislocation or subluxation seen. SI joints are symmetrical and normal XR/XR lumbar spine 2-3V IMPRESSION: Mild degenerative disc changes L4-L5 disc level. No visible acute fracture, dislocation or subluxation seen.
[2021-12-28 06:52] LABS: Hematocrit 43.3 % (37.0-47.0); Hemoglobin 14.3 g/dl (12.0-16.0); Mean Corpuscular Hemoglobin 28.7 pg (27.0-33.0); Mean Corpuscular Volume 86.9 fL (80.0-98.0); Platelet Count 231 X10*3/uL (160-400); Red Blood Count 4.98 X10*6/uL (4.20-5.50); Red Cell Distribution Width 14.8 % (11.0-16.0); White Blood Count 7.1 X10*3/uL (4.8-10.8)
[2021-12-28 06:54] LABS: Appearance Urine CLEAR; Color Urine YELLOW; Glucose Urine UA NEG (NEG); Leukocyte Esterase Urine TRACE (NEG); Nitrite Urine NEG (NEG); Urine Blood NEG (NEG); Urine Ketones NEG (NEG); Urine Protein NEG (NEG-TRACE)
[2021-12-28 07:12] LABS: Mucus Urine TRACE /LPF; RBC Urine 0 /HPF (0); Squamous Epithelial Cell Urine TRACE /LPF
[2021-12-28 07:17] LABS: Alanine Aminotransferase 25 U/L (0-31); Albumin Level 4.2 g/dL (3.5-5.0); Alkaline Phosphatase 107 U/L (39-117); Anion Gap 13 (12-20); Aspartate Amino Transferase 23 U/L (5-31); Bilirubin Total 0.5 mg/dL (0.0-1.0); Blood Urea Nitrogen 18 mg/dL (9-16); Carbon Dioxide 25 mmol/L (22-29); Chloride 107 mmol/L (96-108); Cholesterol 184 mg/dL; Estimated Glomerular Filt Rate 44; Glucose Fasting 81 mg/dL (60-99); HDL Cholesterol 72 mg/dL; LDL Cholesterol Calculated 85 mg/dl; Potassium 4.2 mmol/L (3.3-5.1); Sodium 141 mmol/L (135-145); Total Protein 7.1 g/dL (6.5-8.0); Triglycerides 136 mg/dL
[2021-12-28 07:37] LABS: TSH reflex Free T4 4.42 uIU/mL (0.32-4.0); Vitamin D 25-OH Total 32.5 ng/mL (>30)
[2021-12-28 08:14] LABS: Free T4 (Free Thyroxine) 1.39 ng/dL (0.71-1.85)
== END 2021-12-28 05:59 | disposition home or self-care (01) ==
LOC: HO.XRAY 05:58
PROVIDERS: PCP Internal Medicine; Visit Provider Internal Medicine
DX: Z00.00 Encounter for general adult medical examination without abnormal findings (principal); E78.00 Pure hypercholesterolemia, unspecified; M54.30 Sciatica, unspecified side; E03.9 Hypothyroidism, unspecified
CPT/HCPCS: 36415; 72100; 80053; 80061; 81001; 82306; 84439; 84443; 85027

== ENCOUNTER 2022-04-13 07:20 | Day surgery (SDC) | payer OTHER, SELFPAY ==
--- NOTE | 2022-04-12 08:11 | HO.ANESPROP2 ---
Documented by User: Mariann Webb NP 04/12/22 08:14 HPI - Anesthesia Eval Consult details Narrative: 61yo F for Colonoscopy PMFSH Active Problems Active Problems: All Active Problems (Updated 02/25/22 @ 23:00 by Adelia Collier [facility]) Tubular adenoma (Acute) Sciatica (Acute) COVID-19 virus infection (Acute) H/O colonoscopy (Acute) Hypothyroidism (Acute) Hypercholesterolemia (Acute) Annual physical exam (Acute) Past Medical History Medical History Adenocarcinoma of rectosigmoid junction Annual physical exam CKD (chronic kidney disease), stage III History of mammogram History of positive PPD Hypercholesterolemia Hypothyroidism Tubular adenoma Family History Family History Father Diabetes Mother Ruptured, aorta Surgical History Surgical History H/O colonoscopy Hx of bilateral breast reduction surgery S/P appy Social History Social History Housing: House Alcohol intake: current Alcohol intake frequency: does not drink Patient Tobacco Use Status: Never used Tobacco e-Cigarette/Vaping Use: Never Used Second Hand Smoke Exposure: Yes Are you DNR?: No Advance Directives: No Advance Directives Information Provided: Yes Current occupational status: employed Cognitive needs: No Hearing needs: No Vision needs: Yes Meds Allergies Allergy/AdvReac Type Severity Reaction Status Date / Time No Known Allergies Allergy Verified 02/14/22 15:31 Home Medications Medication Instructions Recorded Confirmed Last Taken Type hpphhtvuisgu-Tm-cnen-minerals (One 1 tab PO DAILY 02/27/21 12/09/21 Unknown History Daily Calcium/Iron tablet) vitamins A,C,A-jlgc-dxfkun 14,320 1 cap PO BID 02/27/21 12/09/21 Unknown History unit-226 mg-200 unit capsule (PreserVision AREDS) Exam Exam Date and Time: April 12, 2022 0811 Pertinent Lab Results Pertinent Lab Results: Laboratory Tests 12/28/21 12/28/21 06:12 06:12 WBC 7.1 Hgb 14.3 Hct 43.3 Plt Count 231 Sodium 141 Potassium 4.2 Chloride 107 Carbon Dioxide 25 BUN 18 H Creatinine 1.24 Narrative Narrative: EKG 08/2021 Vent. Rate : 096 BPM ? ? Atrial Rate : 096 BPM ?? P-R Int : 120 ms? QRS Dur : 074 ms ? ? QT Int : 332 ms ? ? ? P-R-T Axes : 038 021 011 degrees ?? QTc Int : 419 ms ? Normal sinus rhythm Normal ECG When compared with ECG of 04-MAY-2012 10:12, No significant change was found CXR 08/2021 XR chest 1V IMPRESSION: Unremarkable examination. Assessment and Plan Assessment Anesthesia Assessment: Chart Reviewed Documented by User: Joanne Brewer MD 04/13/22 09:00 PMFSH Past Medical History Medical History Adenocarcinoma of rectosigmoid junction Annual physical exam CKD (chronic kidney disease), stage III History of mammogram History of positive PPD Hypercholesterolemia Hypothyroidism Tubular adenoma Family History Family History Father Diabetes Mother Ruptured, aorta Surgical History Surgical History H/O colonoscopy Hx of bilateral breast reduction surgery S/P appy History of Problems with Anesthesia: No Social History Social History Housing: House Alcohol intake: current Alcohol intake frequency: does not drink Patient Tobacco Use Status: Never used Tobacco e-Cigarette/Vaping Use: Never Used Second Hand Smoke Exposure: Yes Are you DNR?: No Advance Directives: No Advance Directives Information Provided: Yes Current occupational status: employed Cognitive needs: No Hearing needs: No Vision needs: Yes Meds Allergies Allergy/AdvReac Type Severity Reaction Status Date / Time No Known Allergies Allergy Verified 02/14/22 15:31 Home Medications Medication Instructions Recorded Confirmed Last Taken Type hwoxzfrubawk-Ol-bqim-minerals (One 1 tab PO DAILY 02/27/21 12/09/21 Unknown History Daily Calcium/Iron tablet) vitamins A,C,G-clqq-wqjxrc 14,320 1 cap PO BID 02/27/21 12/09/21 Unknown History unit-226 mg-200 unit capsule (PreserVision AREDS) Exam Airway Mallampati Class: II TM Dist: >3cm Neck ROM: Full Loose/Missing/Broken Teeth: No Heart: RRR Lungs: CTA Assessment and Plan Assessment Anesthesia Assessment: Anesthesia Plan Discussed Final Anesthetic Review History of Problems with Anesthesia: No NPO: Yes ASA Class: II Final Preanesthetic Review: Meds/Allgs Chart Reviewed, Consent Obtained/Reviewed and Anes Risks/Benef Reviewed Patient Risk: Low Procedure Risk: Low Anesthetic Plan Anesthetic Plan: MAC: Disposition: Standard PACU
[2022-04-13 07:41] VITALS: BMI 23.0
[2022-04-13 07:42] VITALS: BP 142/95; PULSE 92; RESP 19; TEMP 36.1; O2SAT 99
[2022-04-13] MEDS: Lactated Ringers 1,000 ML 100 ML IVCONT (08:12)
--- NOTE | 2022-04-13 08:22 | MHC.SHP ---
Pre-Procedural Eval Section A Date of Service: 04/13/22 Section B Chief Complaint: Benign neoplasm of colon, unspecified Relevant Family History (Specify if Yes): No Relevant Social History: None Present Medications: see Short Stay Collaborative assessment Medical History: Significant History (Adenocarcinoma of rectosigmoid junction Annual physical exam CKD (chronic kidney disease), stage III History of mammogram History of positive PPD Hypercholesterolemia Hypothyroidism Tubular adenoma) History of Previous Operations: Relevant previous surgery/procedure and date(s) (H/O colonoscopy Hx of bilateral breast reduction surgery S/P appy) Allergies: Allergies Allergy/AdvReac Type Severity Reaction Status Date / Time No Known Allergies Allergy Verified 02/14/22 15:31 Review of Systems Sugical H&P ROS: Negative: Constitution, Cardiovascular, Respiratory, Neurological, Psychiatric, Hem-Onc, Allergic/Immunologic, Gastrointestinal, Genitourinary, Musculoskeletal, Integumentary, Endocrine and Eyes/Ears/Nose/Throat Exam Surgical H&P Exam: Normal: HEENT, Normal: Heart, Normal: Lungs, Normal: Extremities, Normal: Abdomen, Normal: Skin and Normal: Neurological Plan Diagnosis/Plan: Unchanged I have reviewed the history and physical and performed a pertinent physical examination on my patient. No changes have occurred unless specified.
--- NOTE | 2022-04-13 08:24 | P.OP_ITS ---
Operative Note Operative Note Date of Service: 04/13/22 Narrative: Operative Information Procedure Description: Colonoscopy Indication: hx of polyps Anesthesia: MAC COLONOSCOPY Instrument: Olympus variable stiffness pediatric scope 190L Colonoscopy Monitoring: Vital signs and clinical assessment, continuous EKG monitoring, Pulse oximetry, Carbon Dioxide monitoring and blood pressure monitoring were done throughout the procedure. Colon withdrawal time was 12 minutes. Procedure: The patient was placed in the left lateral decubitis position and pre-procedure medications were administered. After a digital rectal examination of the ano-rectum, the video colonoscope was inserted into the rectum and advanced through the colon to the cecum/TI. The colonoscope was slowly withdrawn in a retrograde panoramic fashion and the colon mucosa was carefully examined including a retroflexed view of the rectum. Findings and interventions are described below. Procedure Difficulty: easy Findings: Terminal Ileum-normal Cecum:normal Ascending Colon: scattered diverticula noted, x1 sessile polyp 4-6 mm removed with cold forceps. Prior tattoo noted, no residual polyp tissue seen. Transverse Colon -normal Descending Colon:normal Sigmoid Colon: moderate diverticulosis, 10 mm sessile polyp removed with cold snare Rectum: Retroflexion with small internal hemorrhoids, grade I Anorectum - normal Colon preparation: Combined Locks Bowel Preparation Scale Right colon; 2 Transverse colon: 2 Left colon; 3 (0 = Unprepared colon segment with mucosa not seen due to solid stool that cannot be cleared. 1 = Portion of mucosa of the colon segment seen, but other areas of the colon segment not well seen due to staining, residual stool and/or opaque liquid. 2 = Minor amount of residual staining, small fragments of stool and/or opaque liquid, but mucosa of colon segment seen well. 3 = Entire mucosa of colon segment seen well with no residual staining, small fragments of stool or opaque liquid) Impression and Post Procedure Diagnosis: polyps internal hemorrhoids diverticular disease Plan: High fiber diet leaflet Avoid straining at stool, epsom salts and sitz bath, anusol supps or cream Repeat Colonoscopy in 1-2 years due to prior history of polyps or earlier if clinically indicated Above findings were reviewed with the patient and relevant handouts were provided if indicated.
--- NOTE | 2022-04-13 08:25 | P.CONAN1_ITS ---
[facility] Past Medical History Medical History Adenocarcinoma of rectosigmoid junction Annual physical exam CKD (chronic kidney disease), stage III History of mammogram History of positive PPD Hypercholesterolemia Hypothyroidism Tubular adenoma Family History Family History Father Diabetes Mother Ruptured, aorta Surgical History Surgical History H/O colonoscopy Hx of bilateral breast reduction surgery S/P appy Social History Social History Housing: House Alcohol intake: current Alcohol intake frequency: does not drink Patient Tobacco Use Status: Never used Tobacco e-Cigarette/Vaping Use: Never Used Second Hand Smoke Exposure: Yes Are you DNR?: No Advance Directives: No Advance Directives Information Provided: Yes Current occupational status: employed Cognitive needs: No Hearing needs: No Vision needs: Yes Meds Allergies Allergy/AdvReac Type Severity Reaction Status Date / Time No Known Allergies Allergy Verified 02/14/22 15:31 Active Medications: Current Medications Lactated Ringer's (Lr) 1,000 mls @ 100 mls/hr IVCONT .Q10H GIGI Last Admin: 04/13/22 08:12 Dose: 100 mls/hr Home Medications Medication Instructions Recorded Confirmed Last Taken Type ztmmfmanuazb-Sw-jqei-minerals (One 1 tab PO DAILY 02/27/21 12/09/21 Unknown History Daily Calcium/Iron tablet) vitamins A,C,G-dfqz-wnmmwb 14,320 1 cap PO BID 02/27/21 12/09/21 Unknown History unit-226 mg-200 unit capsule (PreserVision AREDS) Physical Exam Vital Signs: Vital Signs: Last Vital Signs Temp 97 F 04/13/22 07:42 Pulse 92 04/13/22 07:42 Resp 19 04/13/22 07:42 BP 142/95 H 04/13/22 07:42 Pulse Ox 99 04/13/22 07:42 O2 Del Method 04/13/22 07:42 BMI result Body Mass Index 23.0 Results Labs Labs: All other labs normal.
[2022-04-13 09:12] VITALS: BP 110/56; PULSE 86; RESP 20; TEMP 36.6; O2SAT 98
[2022-04-13 09:27] VITALS: BP 119/90; PULSE 90; RESP 17; TEMP 36.7; O2SAT 96
[2022-04-13 09:42] VITALS: BP 141/88; PULSE 71; RESP 16; TEMP 36.4; O2SAT 99
== END 2022-04-13 10:46 | disposition home or self-care (01) ==
PROVIDERS: PCP Internal Medicine; Visit Provider Internal Medicine Gastroenterology
PROC: 0DJD8ZZ Inspection of Lower Intestinal Tract, Via Natural or Artificial Opening Endoscopic (ICD-10-PCS; CPT 45378; principal; 2022-04-13 08:30)
DX: Z12.11 Encounter for screening for malignant neoplasm of colon (principal); Z86.010 Personal history of colon polyps; Z85.038 Personal history of other malignant neoplasm of large intestine; D12.2 Benign neoplasm of ascending colon; K63.5 Polyp of colon; K57.30 Diverticulosis of large intestine without perforation or abscess without bleeding; K64.0 First degree hemorrhoids; N18.30 Chronic kidney disease, stage 3 unspecified; E78.00 Pure hypercholesterolemia, unspecified; E03.9 Hypothyroidism, unspecified; R76.11 Nonspecific reaction to tuberculin skin test without active tuberculosis
CPT/HCPCS: 45385; 45380; 88305

== ENCOUNTER 2022-11-12 08:22 | Outpatient (REF) | payer BC, SELFPAY ==
--- NOTE | ~2022-11-12 | MM_ITS ---
EXAMINATION: MM SCREENING DIGITAL BREAST TOMOSYNTHESIS, BILATERAL CLINICAL INFORMATION: Screening. Asymptomatic. Personal history remote reduction mammoplasty, 1995. Family history breast cancer, sister. The lifetime risk of breast cancer based on the Tyrer-Cuzick Model is 12%. COMPARISON: Mammography: 11/08/2021, 11/04/2020, 08/10/2019, 04/16/2018. TECHNIQUE: Digital breast tomosynthesis is performed in both the craniocaudal and mediolateral oblique views along with computer-aided detection (CAD). Synthesized 2D images are generated from the tomosynthesis. FINDINGS: The breasts are almost entirely fatty (ACR BI-RADS breast composition Category a). There is minor scarring and scattered benign calcifications consistent with the prior studies and the remote prior reduction mammoplasty. Background stromal and fibroglandular densities are similar to prior exams and there is no developing density or interval architectural abnormality. There are no significant masses, abnormal calcifications, or other abnormalities. The axilla are skin contours are unremarkable. MM/MM tomosynthesis screening BI IMPRESSION: No mammographic evidence of malignancy. ASSESSMENT: BI-RADS 2: Benign RECOMMENDATION: Routine annual mammography screening. This patient's information was entered into a reminder system with a target due date for their next mammogram.
== END 2022-11-12 08:23 | disposition home or self-care (01) ==
LOC: HO.MAMMO 08:22
PROVIDERS: PCP Nurse Practitioner Family; Visit Provider Nurse Practitioner Family
DX: Z12.31 Encounter for screening mammogram for malignant neoplasm of breast (principal)
CPT/HCPCS: 77063; 77067

== ENCOUNTER 2022-12-22 07:53 | Outpatient (AMB) | payer BC, SELFPAY ==
--- NOTE | 2022-12-22 07:58 | A.OFFPC_ITS ---
Vital Signs 12/22/22 07:59 Height 5 ft Weight 110 lb 2 oz BMI 21.5 BP 130/78 Blood Pressure Location Lt brachial Position Sitting Pulse 71 Pulse Source Pulse Oximeter Pulse Oximetry (%) 100 Oxygen Delivery Method Room Air Intake Visit Reasons: PE Allergies No Known Allergies Allergy (Verified 12/22/22 08:05) Medication List - Last Reconciled 12/22/22 by LIZBET Marroquin atorvastatin 20 mg PO DAILY calcium carbonate-vitamin D3 600 mg-12.5 mcg (500 unit) (Calcium 600 with Vitamin D3) caps PO levothyroxine 88 mcg PO DAILY vitamins A,C,Z-cpvq-sltrjf 4,296 mcg-226 mg-90 mg (PreserVision AREDS) 1 cap PO BID Tobacco use date assessed: 12/22/22 Dental Screening Dental Screen Date: 12/22/22 Did you have a dental visit in the last 12 months?: Yes Did you have a dental problem in the last 6 months where you did not have access to dental care?: No Was dental information given to patient?: Patient has dentist HPI PE HPI Details Pt is here for a PE. Will order labs. Next colon screen due in March, will refer to GI. Mammo is up to date. 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 Hx of hypothyroid, on levothyroxine 88mcg. Will order labs. Hx of vitamin D deficiency, will order labs. [facility] Medical History Adenocarcinoma of rectosigmoid junction Annual physical exam CKD (chronic kidney disease), stage III History of mammogram History of positive PPD Hypercholesterolemia Hypothyroidism Tubular adenoma Surgical History H/O colonoscopy Hx of bilateral breast reduction surgery S/P appy Family History Father Diabetes Mother Ruptured, aorta Social History Housing: House Alcohol intake: current Alcohol intake frequency: does not drink Patient Tobacco Use Status: Never used Tobacco e-Cigarette/Vaping Use: Never Used Second Hand Smoke Exposure: Yes Current occupational status: employed Cognitive needs: No Hearing needs: No Vision needs: Yes Questionnaire PHQ-9 Over the last 2 weeks, how often have you been bothered by any of the following problems? 1. Little interest or pleasure in doing things: not at all 2. Feeling down, depressed, or hopeless: not at all 3. Trouble falling or staying asleep, or sleeping too much: not at all 4. Feeling tired or having little energy: not at all 5. Poor appetite or overeating: not at all 6. Feeling bad about yourself - or that you are a failure or have let yourself or your family down: not at all 7. Trouble concentrating on things, such as reading the newspaper or watching television: not at all 8. Moving or speaking so slowly that other people could have noticed. Or the opposite - being so fidgety or restless that you have been moving around a lot more than usual: not at all 9. Thoughts that you would be better off or of hurting yourself in some way: not at all Total score: 0 Source: Developed by Drs. Mario Grossman, Nanci Thakkar, David Miller and colleagues, with an educational kellen from [employer] Thrive Questionnaire Date Thrive assessed: 12/22/22 I am a: Patient What is your living situation today?: I have a steady place to live Within the past 12 months, did the food you bought not last and you didn't have the money to get more?: Never true Within the past 12 months, did you worry whether your food would run out before you got money to buy more?: Never true Do you have trouble paying for medicines?: No Do you have trouble getting transportation to medical appointments?: No Do you have trouble paying your heating and electricity bill?: No Do you have trouble taking care of your child, family member or friend?: No Do you have trouble with day-to-day activities such as bathing, preparing meals, shopping, managing finances, etc.?: No Are you currently unemployed and looking for a job?: No Are you interested in more education?: No GREG-7 AMB Questionnaire GREG-7 Date GREG - 7 assessed: 12/22/22 Feeling nervous, anxious, or on edge: 0 = Not at all Not being able to stop or control worryin = Not at all Worrying too much about different things: 0 = Not at all Trouble relaxin = Not at all Being so restless that it is hard to sit still: 0 = Not at all Becoming easily annoyed or irritable: 0 = Not at all Feeling afraid as if something awful might happen: 0 = Not at all Total GREG-7 score (0-4 normal; 5-9 mild; 10-14 moderate; 15-21 severe): 0 Source: Developed by Drs. Mario Grossman, Nanci Thakkar, David Miller and colleagues, with an educational kellen from [employer] Review of Systems Const Denies chills and Denies fever(s) Eyes Denies blurry vision ENT Denies vertigo, Denies dizziness and Denies sore throat Card Denies chest pain at rest, Denies chest pain with activity, Denies diaphoresis, Denies dyspnea and Denies dyspnea on exertion Resp Denies cough, Denies dyspnea, Denies dyspnea on exertion and Denies wheezing GI Denies abdominal pain, Denies melena, Denies hematochezia, Denies constipation, Denies diarrhea and Denies loose stools Denies hematuria Musc Denies numbness and Denies tingling Skin/Breast Denies lesions Neuro Denies vertigo, Denies dizziness, Denies numbness and Denies tingling Psych Denies anxiety, Denies depression, Denies homicidal ideation, Denies suicidal ideation and Denies other (substance abuse) Aller/Immun Denies wheezing Physical exam (Primary Care) Vital Signs: Last Vital Signs Pulse 71 12/22/22 07:59 BP 130/78 12/22/22 07:59 Pulse Ox 100 12/22/22 07:59 Oxygen Delivery Method Room Air 12/22/22 07:59 BMI result Body Mass Index 21.5 Tobacco/Smoking Status: Tobacco use Status Tobacco use date assessed 12/22/22 12/22/22 08:10 Patient Tobacco Use Status Never used Tobacco 12/22/22 07:59 e-Cigarette/Vaping Use Never Used 12/22/22 07:59 PHQ-9: PHQ-9 Score PHQ-9: Total score 0 12/22/22 08:27 Thrive Assessment: Date of Thrive Assessment Date Thrive assessed 12/22/22 12/22/22 08:27 Const General: cooperative Nutritional Appearance: well nourished Orientation/consciousness: patient oriented x3 HENMT Other: cerumen noted bilat Head: Yes normal to inspection, Yes normocephalic and Yes atraumatic Ears: TM's normal bilaterally Eyes General: appearance normal, both eyes and all related structures Alignment and Position: alignment normal and position normal Neck Neck: Yes normal visual inspection and Yes no lymphadenopathy Thyroid: Thyroid normal Resp Effort & Inspection: normal respiratory effort Auscultation: clear to auscultation bilaterally Cardio Rate: regular rate Rhythm: regular rhythm Heart sounds: S1 normal heart sound present, S2 normal heart sound present and no murmurs GI Palpation (GI): Soft to palpation and nontender Auscultation: normal bowel sounds Skin Rashes: no rashes Neuro General: patient oriented x3, moves all extremities, no focal motor deficits and deep tendon reflexes 2+ bilaterally Romberg Test: Negative Extrem Right lower extremity: no edema Left lower extremity: no edema Psych Appearance: grossly normal Mental Status: mental status grossly normal Speech and movement: Normal speech and movement present Affect: normal affect Attitude: cooperative Thought process: Normal thought process present Thought content: Normal thought content present Insight: Good insight present (Psych) Judgement: Good judgement present (Psych) Assessment and Plan Assessment & Plan (1) Annual physical exam: Code(s): Z00.00 - Encounter for general adult medical examination without abnormal findings Plan: Labs ordered (2) Hypothyroidism: Code(s): E03.9 - Hypothyroidism, unspecified Plan: Labs ordered (3) Vitamin D deficiency: Code(s): E55.9 - Vitamin D deficiency, unspecified Plan: Labs ordered (4) Tubular adenoma: Code(s): D36.9 - Benign neoplasm, unspecified site Plan: Referred to GI (5) H/O colonoscopy: Comment: Colonoscopy: h/o tubular adenoma - due this march (1 year) for repeat colon screen Code(s): Z98.890 - Other specified postprocedural states Plan: Referred to GI Plan The patient agreed to the use of a medical sonographer for this encounter. Scribed for LIZBET Salmon by Radha Matias medical sonographer, on 12/22/2022 at 08:10 EST. Orders: Orders Comprehensive [place]. Panel Fast Today E03.9 - Hypothyroidism, unspecified, Z00.00 - Encounter for general adult medical examination without abnormal findings Lipid Panel Today E03.9 - Hypothyroidism, unspecified, Z00.00 - Encounter for general adult medical examination without abnormal findings TSH reflex Free T4 Today E03.9 - Hypothyroidism, unspecified, Z00.00 - Encounter for general adult medical examination without abnormal findings Complete Blood Count Auto Diff Today E03.9 - Hypothyroidism, unspecified, Z00.00 - Encounter for general adult medical examination without abnormal findings UA CC w/rflx Micro + Cult Today E03.9 - Hypothyroidism, unspecified, Z00.00 - Encounter for general adult medical examination without abnormal findings Vitamin D 25-OH Total Today E55.9 - Vitamin D deficiency, unspecified Referrals Gastroenterology Referral D36.9 - Benign neoplasm, unspecified site, Z98.890 - Other specified postprocedural states Coding Level of Care Code Est Pt Prev Care 40-64y(41089) Diagnoses Annual physical exam Z00.00 Hypothyroidism E03.9 Vitamin D deficiency E55.9 Tubular adenoma D36.9 H/O colonoscopy Z98.890
[2022-12-22 07:59] VITALS: BP 130/78; PULSE 71; O2SAT 100; BMI 21.5
== END 2022-12-22 08:25 | disposition home or self-care (01) ==
PROVIDERS: Visit Provider Nurse Practitioner Family
DX: Z00.00 Encounter for general adult medical examination without abnormal findings (principal); E03.9 Hypothyroidism, unspecified; E55.9 Vitamin D deficiency, unspecified; Z98.890 Other specified postprocedural states; D36.9 Benign neoplasm, unspecified site
CPT/HCPCS: 99396

== ENCOUNTER 2022-12-22 08:26 | Outpatient (REF) | payer BC, SELFPAY ==
[2022-12-22 11:27] LABS: MANUAL DIFF FLAG NO
[2022-12-22 11:37] LABS: Appearance Urine Clear; Color Urine Yellow; Glucose Urine UA Negative (Negative); Leukocyte Esterase Urine Negative (Negative); Nitrite Urine Negative (Negative); Urine Blood Negative (Negative); Urine Ketones Negative (Negative); Urine Protein Negative (Neg-Trace)
[2022-12-22 12:09] LABS: Basophils Absolute Auto 0.1 X10*3/uL (0.0-0.2); Basophils Percent Auto 0.9 % (0-2); Eosinophils Absolute Auto 0.3 X10*3/uL (0.0-0.4); Eosinophils Percent Auto 4.1 % (0-4); Hematocrit 45.3 % (37.0-47.0); Hemoglobin 14.9 g/dl (12.0-16.0); Imm Gran Abs Auto 0.01 X10*3/uL (0.00-0.03); Imm Gran Pct Auto 0.2 % (0.0-0.4); Lymphocytes Absolute Auto 2.1 X10*3/uL (1.2-4.9); Lymphocytes Percent Auto 32.4 % (20-40); Mean Corpuscular HGB Conc 32.9 g/dl (31.0-35.0); Mean Corpuscular Hemoglobin 28.4 pg (27.0-33.0); Mean Corpuscular Volume 86.5 fL (80.0-98.0); Mean Platelet Volume 11.2 fL (9.4-12.3); Monocytes Absolute Auto 0.5 X10*3/uL (0.1-1.2); Monocytes Percent Auto 7.1 % (2-11); Neutrophils Absolute Auto 3.5 x10*3/uL (2.0-8.3); Neutrophils Percent Auto 55.3 % (45-73); Platelet Count 222 X10*3/uL (160-400); Red Blood Count 5.24 X10*6/uL (4.20-5.50); Red Cell Distribution Width 14.5 % (11.0-16.0); White Blood Count 6.3 X10*3/uL (4.8-10.8)
[2022-12-22 12:59] LABS: Alanine Aminotransferase 26 U/L (0-31); Albumin Level 4.2 g/dL (3.5-5.0); Alkaline Phosphatase 96 U/L (39-117); Anion Gap 16 (12-20); Aspartate Amino Transferase 24 U/L (5-31); Bilirubin Total 0.5 mg/dL (0.0-1.0); Blood Urea Nitrogen 24 mg/dL (9-16); Calcium 9.5 mg/dL (8.4-10.2); Carbon Dioxide 22 mmol/L (22-29); Chloride 107 mmol/L (96-108); Cholesterol 169 mg/dL; Estimated Glomerular Filt Rate 51; Glucose Fasting 84 mg/dL (60-99); HDL Cholesterol 68 mg/dL; LDL Cholesterol Calculated 81 mg/dl; Potassium 4.6 mmol/L (3.3-5.1); Sodium 140 mmol/L (135-145); TSH reflex Free T4 0.15 uIU/mL (0.32-4.0); Total Protein 7.2 g/dL (6.5-8.0); Triglycerides 102 mg/dL; Vitamin D 25-OH Total 54.8 ng/mL (>30)
[2022-12-22 13:57] LABS: Free T4 (Free Thyroxine) 1.54 ng/dL (0.71-1.85)
== END 2022-12-22 08:27 | disposition home or self-care (01) ==
LOC: HO.HMGCLDS 08:26
PROVIDERS: PCP Nurse Practitioner Family; Visit Provider Nurse Practitioner Family
DX: Z00.00 Encounter for general adult medical examination without abnormal findings (principal); E03.9 Hypothyroidism, unspecified; E55.9 Vitamin D deficiency, unspecified
CPT/HCPCS: 36415; 80053; 80061; 81003; 82306; 84439; 84443; 85025

== ENCOUNTER 2023-03-04 08:04 | Outpatient (REF) | payer BC, SELFPAY | END 2023-03-04 08:05 | disposition home or self-care (01) | LOC: HO.LAB 08:04 | PROVIDERS: PCP Nurse Practitioner Family; Visit Provider Nurse Practitioner Family | DX: E03.9 Hypothyroidism, unspecified (principal) | CPT/HCPCS: 36415; 84443 ==

== ENCOUNTER 2023-09-07 15:05 | Outpatient (AMB) | payer BC, SELFPAY ==
[2023-09-07 15:19] VITALS: BP 141/82; PULSE 82; BMI 21.8
--- NOTE | 2023-09-07 15:19 | A.OFFVIS_ITS ---
Intake Vital Signs 09/07/23 15:19 Height 5 ft Weight 111 lb 8.862 oz BMI 21.8 BP 141/82 H Blood Pressure Location Lt brachial Position Sitting Pulse 82 Intake Visit Reasons: pt req follow up Intake Note: Patient in office today in follow up to discuss colonoscopy. CC: Patient reports occasional constipation and blood when she wipes but she takes docusate sodium at bedtime. Last colonoscopy with Dr. Hawthorne on 04/13/2022 Denies other GI concerns today. 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 Patient denies any do melena, hematochezia, unintentional weight loss or ribbon like stools. Screen for colon cancer Patient is due for colorectal screening again due to large size of tubular adenoma. Patient denies any GI concerning symptoms. Denies any melena, hematochezia, unintentional weight loss or ribbon like stools. Patient denies any cardiac or respiratory symptoms. No issues with anesthesia in the past. No history of sleep apnea. Not on any anticoagulation medication. Patient does not have any cardiac or respiratory symptoms. We will send her script for Colace to help her move her bowels better to ensure that patient has a good prep. Patient did had a good prep last time. Discussed with patient what to expect before during and after the procedure as well as the importance of good bowel prep and clear liquid diet day before the procedure. I will see her after the procedure. Sooner on as needed basis. Patient is agreeable to this plan and verbalizes understanding of instructions. She was given the opportunity to ask questions and all questions answered. ? Thank you for allowing me participate in her care Plan Medications New docusate sodium 100 mg PO BEDTIME 90 caps 3RF K59.00 bisacodyl (Dulcolax (bisacodyl)) Start taking 2 tablet every night 7 days before the procedure 10 mg (2 x 5 mg) PO BEDTIME 14 tabs 0RF Z12.11 TODAY'S VISIT Patient is here today for follow-up and to discuss going for colonoscopy. Patient had colonoscopy in February of 2021 with large tubular adenoma found. No high-grade dysplasia or carcinoma found on biopsy. Patient denies any melena, hematochezia, unintentional weight loss or ribbon like stools. Patient is due to go for colonoscopy again. Patient denies any abdominal pain or discomfort. Denies any dyspepsia, dysphagia or odynophagia. Occasional constipation, however reports that Colace helps. Patient is trying to take it daily. Patient denies any issues with anesthesia in the past. No history of sleep apnea. Not on any anticoagulation medication. No infectious diseases in the past or present. Patient denies any cardiac or respiratory symptoms. Patient requesting same prep as last time. Unable to drink large amount of fluids. REPLACED BY [facility] Medical History Tubular adenoma History of positive PPD Annual physical exam CKD (chronic kidney disease), stage III History of mammogram Adenocarcinoma of rectosigmoid junction Hypercholesterolemia Hypothyroidism Surgical History S/P appy Hx of bilateral breast reduction surgery H/O colonoscopy Family History Father Diabetes Mother Ruptured, aorta Social History Housing: House Alcohol intake: current Alcohol intake frequency: does not drink Patient Tobacco Use Status: Never used Tobacco e-Cigarette/Vaping Use: Never Used Second Hand Smoke Exposure: Yes Current occupational status: employed Cognitive needs: No Hearing needs: No Vision needs: Yes Review of Systems Const Denies weight gain and Denies weight loss ENT Reports no additional complaints, Denies dysphagia and Denies odynophagia Card Reports no additional complaints Resp Reports no additional complaints GI Denies abdominal pain, Denies belching, Denies melena, Denies bloating, Denies change in bowel habits, Denies dysphagia, Denies excessive flatus, Denies dyspepsia, Denies heartburn, Denies diarrhea, Denies loose stools, Denies nausea, Denies odynophagia and Denies vomiting Musc Reports no additional complaints Neuro Reports no additional complaints Psych Reports no additional complaints Endo Reports no additional complaints Physical Exam Vital Signs: Last Vital Signs Pulse 82 09/07/23 15:19 BP 141/82 H 09/07/23 15:19 BMI result Body Mass Index 21.8 Const General: healthy appearing, no acute distress and well developed Nutritional Appearance: well nourished Orientation/consciousness: patient oriented x3 Resp Effort & Inspection: normal respiratory effort, able to speak in complete sentences, no tracheal deviation and symmetric chest movement Auscultation: clear to auscultation bilaterally Cardio Rate: regular rate GI Inspection: Yes normal to inspection and No distended Palpation (GI): Soft to palpation, not firm, nontender and No hepatosplenomegaly present Auscultation: normal bowel sounds General: Yes no CVA tenderness Back/Spine/Pelvis Back: no CVA tenderness Skin General skin exam: elasticity normal, turgor normal and dry skin Neuro General: patient oriented x3 Psych Appearance: grossly normal Mental Status: mental status grossly normal Assessment & Plan Assessment & Plan (1) Tubular adenoma: Code(s): D36.9 - Benign neoplasm, unspecified site (2) H/O colonoscopy: Code(s): Z98.890 - Other specified postprocedural states Plan History of colonoscopy in 2020 patient is overdue to go for procedure again. Denies any melena, hematochezia, unintentional weight loss or ribbon like sto ols. Denies any issues with anesthesia in the past. Patient did well with the prep last time. Patient will take Dulcolax tablets every evening starting 1 week before the procedure and 4 tablets at noon day before procedure. Patient was encouraged to drink plenty fluids. What to expect before during and after procedure discussed with patient. The importance of clear liquid diet and good bowel prep day before procedure discussed with patient. I will see patient after the procedure, sooner on as needed basis. Patient is agreeable to this plan and verbalizes understanding of instructions. She was given the opportunity to ask questions and all questions answered. Thank you for allowing me to participate in her care Medications: New bisacodyl (Dulcolax (bisacodyl)) Start taking 2 tablet every night 7 days before the procedure and 1 day before procedure take tablets at noon and 2 tablets at 5 pm 10 mg (2 x 5 mg) PO BEDTIME 16 tabs 0RF Z12.11 - Encounter for screening for malignant neoplasm of colon Coding Level of Care Code Est Pt Level 3 (93882) Diagnoses Tubular adenoma D36.9 H/O colonoscopy Z98.890 Time Spent (min) 30 Comment 20 minutes spent with patient and additional 10 minutes spent reviewing her records
== END 2023-09-07 16:10 | disposition home or self-care (01) ==
PROVIDERS: PCP Nurse Practitioner Family; Referring Provider Nurse Practitioner Family; Visit Provider Nurse Practitioner Family
DX: D36.9 Benign neoplasm, unspecified site (principal); Z98.890 Other specified postprocedural states
CPT/HCPCS: 99213

== ENCOUNTER → 2023-09-07 15:05 | Outpatient (BNVA) | payer BC, SELFPAY | PROVIDERS: PCP Nurse Practitioner Family; Visit Provider Nurse Practitioner Family ==

== ENCOUNTER 2023-11-18 07:40 | Outpatient (REF) | payer BC, SELFPAY ==
--- NOTE | ~2023-11-18 | MM_ITS ---
EXAMINATION: MM SCREENING DIGITAL BREAST TOMOSYNTHESIS, BILATERAL CLINICAL INFORMATION: Screening. Asymptomatic. The patient is status post bilateral breast reduction. COMPARISON: Mammography: This study is compared with prior exams dating back to TECHNIQUE: Digital breast tomosynthesis is performed in both the craniocaudal and mediolateral oblique views along with computer-aided detection (CAD). Synthesized 2D images are generated from the tomosynthesis. FINDINGS: There are scattered areas of fibroglandular density (ACR BI-RADS breast composition Category b). There are no significant masses, abnormal calcifications, or other abnormalities. The are bilateral post-reduction changes. MM/MM tomosynthesis screening BI IMPRESSION: No mammographic evidence of malignancy. ASSESSMENT: BI-RADS BI-RADS 2 - Benign Findings RECOMMENDATION: Routine annual mammography screening. 1 year F/U This examination should not preclude the clinical evaluation of a suspicious palpable abnormality. This patient's information was entered into a reminder system with a target due date for their next mammogram.
== END 2023-11-18 07:41 | disposition home or self-care (01) ==
LOC: HO.MAMMO 07:40
PROVIDERS: PCP Nurse Practitioner Family; Visit Provider Internal Medicine
DX: Z12.31 Encounter for screening mammogram for malignant neoplasm of breast (principal)
CPT/HCPCS: 77063; 77067

== ENCOUNTER → 2023-11-18 07:45 | Outpatient (BNV) | payer BC, SELFPAY | PROVIDERS: PCP Nurse Practitioner Family; Visit Provider Radiology Diagnostic Radiology | DX: Z12.31 Encounter for screening mammogram for malignant neoplasm of breast (principal) | CPT/HCPCS: 77063; 77067 ==

== ENCOUNTER 2024-01-23 08:27 | Day surgery (SDC) | payer BC, SELFPAY ==
[2024-01-19 15:05] VITALS: BMI 21.8
[2024-01-23 09:40] VITALS: BP 145/79; PULSE 65; RESP 16; TEMP 36.6; O2SAT 100; BMI 20.7
[2024-01-23] MEDS: Sodium Phosphate,Mono-Dibasic 133 ML ENEMA PR (09:55)
--- NOTE | 2024-01-23 10:09 | P.CONAN_ITS ---
[facility] Active Problems Active Problems: All Active Problems Vitamin D deficiency (Acute) Sciatica (Acute) COVID-19 virus infection (Acute) Tubular adenoma (Acute) H/O colonoscopy (Acute) Hypothyroidism (Acute) Hypercholesterolemia (Acute) Annual physical exam (Acute) Past Medical History Medical History Tubular adenoma History of positive PPD CKD (chronic kidney disease), stage III Adenocarcinoma of rectosigmoid junction Hypercholesterolemia Hypothyroidism Family History Family History Father Diabetes Mother Ruptured, aorta Surgical History Surgical History Hx of appendectomy Hx of bilateral breast reduction surgery H/O colonoscopy History of Problems with Anesthesia: No Social History Social History Housing: House Are you a primary long term care phlebotomist to a significant other at home: No Do you presently have visiting nurse or other home services: No Alcohol intake: current Alcohol intake frequency: holidays/special occasions only Patient Tobacco Use Status: Never used Tobacco e-Cigarette/Vaping Use: Never Used Second Hand Smoke Exposure: Yes Use of substances other than those prescribed or required for medical reasons: No Have you been hit, kicked, punched, or otherwise hurt by someone within the past year? If so, by whom?: No Are you DNR?: No Advance Directives: No Advance Directives Information Provided: Yes Recently lost weight without trying: No How much weight loss: Not applicable Eating poorly because of decreased appetite: No Nutrition screen score: 0 Nutrition Risks: No Nutritional Risk Patient : No : No Poor oral hygiene: No Current occupational status: employed Cognitive needs: No Hearing needs: No Vision needs: Yes Meds Allergies Allergy/AdvReac Type Severity Reaction Status Date / Time No Known Allergies Allergy Verified 01/23/24 09:38 Active Medications: Current Medications Lactated Ringer's (Lr) 1,000 mls @ 80 mls/hr IVCONT .[id number] GIGI Sodium Biphosphate/Sodium Phosphate (Sodium Phosphate,[place]-Dibasic 133 Ml Enema) 133 ml VT ONCE PRN PRN Reason: Poor Colonoscopy Prep Results Home Medications ?Medication ?Instructions ?Recorded ?Confirmed ?Last Taken ?Type vitamins A,C,G-iehz-umzzgw 4,296 1 cap PO BID 02/27/21 01/23/24 Unknown History mcg-226 mg-90 mg capsule (PreserVision AREDS) calcium carbonate 600 mg-vitamin 1 cap PO DAILY 12/22/22 01/23/24 Unknown History D3 12.5 mcg (500 unit) capsule (Calcium 600 with Vitamin D3) Colace 1 cap PO DAILY 01/23/24 01/23/24 Unknown History Exam Height,Weight and Vital Signs: Height 5 ft Weight 47.99 kg Last Vital Signs Temp 97.8 F 01/23/24 09:40 Pulse 65 01/23/24 09:40 Resp 16 01/23/24 09:40 BP 145/79 H 01/23/24 09:40 Pulse Ox 100 01/23/24 09:40 O2 Del Method Room Air 01/23/24 09:40 Airway Mallampati Class: II TM Dist: >3cm Neck ROM: Full Loose/Missing/Broken Teeth: No Heart: RRR Lungs: CTA Assessment and Plan Assessment Anesthesia Assessment: Anesthesia Plan Discussed and Chart Reviewed Final Anesthetic Review History of Problems with Anesthesia: No NPO: Yes ASA Class: II Final Preanesthetic Review: Meds/Allgs Chart Reviewed, Consent Obtained/Reviewed and Anes Risks/Benef Reviewed Patient Risk: Low Procedure Risk: Low Anesthetic Plan Anesthetic Plan: MAC: Disposition: Standard PACU
--- NOTE | 2024-01-23 10:21 | MHC.SHP ---
Pre-Procedural Eval Section A - 24 Hr Update-Section A only Date of Service: 01/23/24 Section B - Complete if H&P > 30 days Chief Complaint: Personal history of colonic polyps Relevant Family History (Specify if Yes): No Relevant Social History: None Present Medications: None Medical History: Significant History (Adenocarcinoma of rectosigmoid junction Annual physical exam CKD (chronic kidney disease), stage III History of mammogram History of positive PPD Hypercholesterolemia Hypothyroidism Tubular adenoma) History of Previous Operations: Relevant previous surgery/procedure and date(s) (H/O colonoscopy Hx of bilateral breast reduction surgery S/P appy) Allergies: Allergies Allergy/AdvReac Type Severity Reaction Status Date / Time No Known Allergies Allergy Verified 01/23/24 09:38 Review of Systems Sugical H&P ROS: Negative: Constitution, Cardiovascular, Respiratory, Neurological, Psychiatric, Hem-Onc, Allergic/Immunologic, Gastrointestinal, Genitourinary, Musculoskeletal, Integumentary, Endocrine and Eyes/Ears/Nose/Throat Exam Surgical H&P Exam: Normal: HEENT, Normal: Heart, Normal: Lungs, Normal: Extremities, Normal: Abdomen, Normal: Skin and Normal: Neurological Plan Diagnosis/Plan: Unchanged I have reviewed the history and physical and performed a pertinent physical examination on my patient. No changes have occurred unless specified. Time Spent With Patient Time: Total time managing care of this patient today ____ minutes.
[2024-01-23 10:29] LABS: Anion Gap 14 (12-20); Blood Urea Nitrogen 13 mg/dL (9-16); Carbon Dioxide 22 mmol/L (22-29); Chloride 107 mmol/L (96-108); Creatinine Clr Calc Pharmacy 41.1; Estimated Glomerular Filt Rate 54; Sodium 139 mmol/L (135-145)
[2024-01-23] MEDS: Lactated Ringers 1,000 ML 80 ML IVCONT (10:29)
--- NOTE | 2024-01-23 10:30 | PC.NURSE ---
May proceed into procedure room without preop labs resulted per Dr. Brewer.
--- NOTE | 2024-01-23 10:49 | HO.OPN-COLON ---
Colonoscopy Operative Note Operative Note Date of Service: 01/23/24 Narrative: Operative Information Procedure Description: Colonoscopy Indication: hx of colon polyps Anesthesia: MAC COLONOSCOPY Instrument: Olympus variable stiffness pediatric scope 190L Colonoscopy Monitoring: Vital signs and clinical assessment, continuous EKG monitoring, Pulse oximetry, Carbon Dioxide monitoring and blood pressure monitoring were done throughout the procedure. Colon withdrawal time was 6 minutes. Procedure: The patient was placed in the left lateral decubitis position and pre-procedure medications were administered. After a digital rectal examination of the ano-rectum, the video colonoscope was inserted into the rectum and advanced through the colon to the cecum/TI. The colonoscope was slowly withdrawn in a retrograde panoramic fashion and the colon mucosa was carefully examined including a retroflexed view of the rectum. Findings and interventions are described below. Procedure Difficulty: easy Findings: Terminal Ileum-normal Cecum:normal Ascending Colon: patchy diverticulosis noted, tattoo from prior colonoscopy noted, 4-6 mm sessile polyp removed with cold forceps Transverse Colon -normal Descending Colon:normal Sigmoid Colon: moderate diverticulosis Rectum: Retroflexion with small internal hemorrhoids seen, grade I Anorectum - normal Intervention: cold forceps Colon preparation: [place] Bowel Preparation Scale Right colon; 2 Transverse colon: 2 Left colon; 2 (0 = Unprepared colon segment with mucosa not seen due to solid stool that cannot be cleared. 1 = Portion of mucosa of the colon segment seen, but other areas of the colon segment not well seen due to staining, residual stool and/or opaque liquid. 2 = Minor amount of residual staining, small fragments of stool and/or opaque liquid, but mucosa of colon segment seen well. 3 = Entire mucosa of colon segment seen well with no residual staining, small fragments of stool or opaque liquid) Impression and Post Procedure Diagnosis: diverticulosis colon polyp internal hemorrhoids Plan: High fiber diet leaflet Avoid straining at stool, epsom salts and sitz bath, anusol supps or cream Repeat Colonoscopy in 4-5 years or earlier if clinically indicated Above findings were reviewed with the patient and relevant handouts were provided if indicated.
[2024-01-23 10:53] VITALS: BP 101/55; PULSE 67; RESP 18; TEMP 36.2; O2SAT 100
[2024-01-23 11:08] VITALS: BP 117/68; PULSE 78; RESP 18; TEMP 36.3; O2SAT 100
== END 2024-01-23 11:59 | disposition home or self-care (01) ==
PROVIDERS: Anesthesiology; PCP Nurse Practitioner Family; Visit Provider Internal Medicine Gastroenterology
PROC: 0DJD8ZZ Inspection of Lower Intestinal Tract, Via Natural or Artificial Opening Endoscopic (ICD-10-PCS; CPT 45378; principal; 2024-01-23 10:40)
DX: Z12.11 Encounter for screening for malignant neoplasm of colon (principal); Z86.010 Personal history of colon polyps; Z85.038 Personal history of other malignant neoplasm of large intestine; D12.2 Benign neoplasm of ascending colon; K57.30 Diverticulosis of large intestine without perforation or abscess without bleeding; K64.0 First degree hemorrhoids; N18.30 Chronic kidney disease, stage 3 unspecified; E78.00 Pure hypercholesterolemia, unspecified; E03.9 Hypothyroidism, unspecified; R76.11 Nonspecific reaction to tuberculin skin test without active tuberculosis; Z79.899 Other long term (current) drug therapy; Z98.890 Other specified postprocedural states
CPT/HCPCS: 45380; 36415; 80051; 82565; 84520; 88305; J2704

== ENCOUNTER → 2024-01-23 08:27 | Outpatient (BNV) | payer BC, SELFPAY | PROVIDERS: PCP Nurse Practitioner Family; Visit Provider Internal Medicine Gastroenterology | DX: Z12.11 Encounter for screening for malignant neoplasm of colon (principal); K63.5 Polyp of colon; K57.90 Diverticulosis of intestine, part unspecified, without perforation or abscess without bleeding; Z86.010 Personal history of colon polyps | CPT/HCPCS: 45380 ==

== ENCOUNTER 2024-02-29 08:53 | Outpatient (AMB) | payer BC, SELFPAY ==
[2024-02-29 09:07] VITALS: BP 102/64; PULSE 63; O2SAT 97; BMI 21.5
--- NOTE | 2024-02-29 09:07 | A.OFFPC_ITS ---
Vital Signs 02/29/24 09:07 Height 5 ft Weight 110 lb BMI 21.5 BP 102/64 Blood Pressure Location Lt brachial Position Sitting Pulse 63 Pulse Source Pulse Oximeter Pulse Oximetry (%) 97 Oxygen Delivery Method Room Air Intake Visit Reasons: PE Intake Note: pt is here for PE Cost Recorder Required: No Accompanied by: Self / Same As Patient Allergies No Known Allergies Allergy (Verified 02/29/24 09:46) Medication List - Last Reconciled 02/29/24 by LIZBET Marroquin atorvastatin 20 mg PO DAILY calcium carbonate-vitamin D3 600 mg-12.5 mcg (500 unit) (Calcium 600 with Vitamin D3) 1 cap PO DAILY [Colace 1 cap PO DAILY] levothyroxine 75 mcg PO DAILY vitamins A,C,M-tarp-mgxjsi 4,296 mcg-226 mg-90 mg (PreserVision AREDS) 1 cap PO BID Tobacco use date assessed: 02/29/24 Dental Screening Dental Screen Date: 02/29/24 Did you have a dental visit in the last 12 months?: Yes Did you have a dental problem in the last 6 months where you did not have access to dental care?: No Was dental information given to patient?: Patient has dentist HPI PE HPI Details Pt is here for a PE. Will order labs. Colon screen is up to date. Mammo is up to date. 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 Pt reports doing very well. ON LICENSE OF [facility] Medical History Tubular adenoma History of positive PPD CKD (chronic kidney disease), stage III Adenocarcinoma of rectosigmoid junction Hypercholesterolemia Hypothyroidism Surgical History Hx of appendectomy Hx of bilateral breast reduction surgery H/O colonoscopy Family History Father Diabetes Mother Ruptured, aorta Social History Housing: House Are you a primary manager care to a significant other at home: No Do you presently have visiting nurse or other home services: No Alcohol intake: current Alcohol intake frequency: holidays/special occasions only Patient Tobacco Use Status: Never used Tobacco e-Cigarette/Vaping Use: Never Used Second Hand Smoke Exposure: Yes Current occupational status: employed Cognitive needs: No Hearing needs: No Vision needs: Yes Questionnaire PHQ-9 Over the last 2 weeks, how often have you been bothered by any of the following problems? 1. Little interest or pleasure in doing things: not at all 2. Feeling down, depressed, or hopeless: not at all 3. Trouble falling or staying asleep, or sleeping too much: not at all 4. Feeling tired or having little energy: not at all 5. Poor appetite or overeating: not at all 6. Feeling bad about yourself - or that you are a failure or have let yourself or your family down: not at all 7. Trouble concentrating on things, such as reading the newspaper or watching television: not at all 8. Moving or speaking so slowly that other people could have noticed. Or the opposite - being so fidgety or restless that you have been moving around a lot more than usual: not at all 9. Thoughts that you would be better off or of hurting yourself in some way: not at all Total score: 0 Depression Screening Interpretation: Negative Depression Screening Done: Yes 65859 - PHQ-9 Billing: Yes Source: Developed by Drs. Mario Grossman, Nanci Thakkar, David Miller and colleagues, with an educational kellen from [employer]. Thrive Questionnaire Date Thrive assessed: 02/22/24 I am a: Patient What is your living situation today?: I have a steady place to live Within the past 12 months, did the food you bought not last and you didn't have the money to get more?: Never true Within the past 12 months, did you worry whether your food would run out before you got money to buy more?: Never true Do you have trouble paying for medicines?: No Do you have trouble getting transportation to medical appointments?: No Do you have trouble paying your heating and electricity bill?: No Do you have trouble taking care of your child, family member or friend?: No Do you have trouble with day-to-day activities such as bathing, preparing meals, shopping, managing finances, etc.?: No Are you interested in more education?: No Please select the resources that you would like help with: None Currently or been in a relationship where the following occur: No concerns reported THRIVE Score: 0 AUDIT C Alcohol Use Questionnaire (AUDIT-C) 1. How often do you have a drink containing alcohol?: Monthly or less 2. How many drinks containing alcohol do you have on a typical day when you are drinking?: 1 or 2 3. How often do you have six or more drinks on one occasion?: Never Total Score: 1 Score Reviewed/Action Taken: Yes GREG-7 AMB Questionnaire GREG-7 Date GREG - 7 assessed: 02/29/24 Feeling nervous, anxious, or on edge: 0 = Not at all Not being able to stop or control worryin = Not at all Worrying too much about different things: 0 = Not at all Trouble relaxin = Not at all Being so restless that it is hard to sit still: 0 = Not at all Becoming easily annoyed or irritable: 0 = Not at all Feeling afraid as if something awful might happen: 0 = Not at all Total GREG-7 score (0-4 normal; 5-9 mild; 10-14 moderate; 15-21 severe): 0 Source: Developed by Drs. Mario Grossman, Nanci Thakkar, David Miller and colleagues, with an educational kellen from [employer]. GREG-7 Assessment Billing GREG-7 Assessment Tool: GREG-7 Assessment 45784 Review of Systems Const Denies chills and Denies fever(s) Eyes Denies blurry vision ENT Denies vertigo, Denies dizziness and Denies sore throat Card Denies chest pain at rest, Denies chest pain with activity, Denies diaphoresis, Denies dyspnea and Denies dyspnea on exertion Resp Denies cough, Denies dyspnea, Denies dyspnea on exertion and Denies wheezing GI Denies abdominal pain, Denies melena, Denies hematochezia, Denies constipation, Denies diarrhea and Denies loose stools Denies hematuria Musc Denies numbness and Denies tingling Skin/Breast Denies lesions Neuro Denies vertigo, Denies dizziness, Denies numbness and Denies tingling Psych Denies anxiety, Denies depression, Denies homicidal ideation, Denies suicidal ideation and Denies other (substance abuse) Aller/Immun Denies wheezing Physical exam (Primary Care) Vital Signs: Last Vital Signs Pulse 63 02/29/24 09:07 BP 102/64 02/29/24 09:07 Pulse Ox 97 02/29/24 09:07 Oxygen Delivery Method Room Air 02/29/24 09:07 BMI result Body Mass Index 21.5 Tobacco/Smoking Status: Tobacco use Status Tobacco use date assessed 02/29/24 02/29/24 09:08 Patient Tobacco Use Status Never used Tobacco 02/29/24 09:08 e-Cigarette/Vaping Use Never Used 02/29/24 09:08 PHQ-9: PHQ-9 Score PHQ-9: Total score 0 02/29/24 09:08 Depression Screening Interpretation: Negative Thrive Assessment: Date of Thrive Assessment Date Thrive assessed 02/22/24 02/29/24 09:08 Currently or been in a relationship where the following occur: No concerns reported Const General: cooperative Nutritional Appearance: well nourished Orientation/consciousness: patient oriented x3 HENMT Head: Yes normal to inspection, Yes normocephalic and Yes atraumatic Ears: TM's normal bilaterally Eyes General: appearance normal, both eyes and all related structures Alignment and Position: alignment normal and position normal Neck Neck: Yes normal visual inspection, Yes no lymphadenopathy and Yes supple Resp Effort & Inspection: normal respiratory effort Auscultation: clear to auscultation bilaterally Cardio Rate: regular rate Rhythm: regular rhythm Heart sounds: S1 normal heart sound present, S2 normal heart sound present and no murmurs GI Palpation (GI): Soft to palpation and nontender Auscultation: normal bowel sounds Skin Rashes: no rashes Neuro General: patient oriented x3, moves all extremities, no focal motor deficits and deep tendon reflexes 2+ bilaterally Romberg Test: Negative Psych Appearance: grossly normal Mental Status: mental status grossly normal Speech and movement: Normal speech and movement present Affect: normal affect Attitude: cooperative Thought process: Normal thought process present Thought content: Normal thought content present Insight: Good insight present (Psych) Judgement: Good judgement present (Psych) Coding Level of Care Code Est Pt Prev Care 40-64y(64894) Diagnoses Annual physical exam Z00.00 Vitamin D deficiency E55.9 Additional Codes GREG-7 Assessment Billing - GREG-7 Assessment Tool: GREG-7 Assessment 28490 ([id number]) Assessment & Plan Assessment & Plan (1) Annual physical exam: Code(s): Z00.00 - Encounter for general adult medical examination without abnormal findings Category: Medical Plan: Labs ordered (2) Vitamin D deficiency: Code(s): E55.9 - Vitamin D deficiency, unspecified Category: Medical Plan: Vitamin D ordered Plan The patient agreed to the use of a veterinary medical officer for this encounter. Scribed for LIZBET Salmon by Radha Matias veterinary medical officer, on 02/29/2024 at 09:35 EST. Orders: Orders Comprehensive Pana. Panel Fast Today Z00.00 - Encounter for general adult medical examination without abnormal findings UA CC w/rflx Micro + Cult Today Z00.00 - Encounter for general adult medical examination without abnormal findings Lipid Panel Today Z00.00 - Encounter for general adult medical examination without abnormal findings Vitamin D 25-OH Total Today E55.9 - Vitamin D deficiency, unspecified Complete Blood Count Auto Diff Today Z00.00 - Encounter for general adult medical examination without abnormal findings TSH reflex Free T4 Today Z00.00 - Encounter for general adult medical examination without abnormal findings
== END 2024-02-29 16:08 | disposition home or self-care (01) ==
PROVIDERS: PCP Nurse Practitioner Family; Visit Provider Nurse Practitioner Family
DX: Z00.00 Encounter for general adult medical examination without abnormal findings (principal); E55.9 Vitamin D deficiency, unspecified

== ENCOUNTER → 2024-02-29 08:53 | Outpatient (BNVA) | payer BC, SELFPAY | PROVIDERS: PCP Nurse Practitioner Family; Visit Provider Nurse Practitioner Family ==

== ENCOUNTER 2024-02-29 09:42 | Outpatient (REF) | payer BC, SELFPAY ==
[2024-02-29 13:04] LABS: MANUAL DIFF FLAG NO
[2024-02-29 13:09] LABS: Basophils Absolute Auto 0.1 X10*3/uL (0.0-0.2); Basophils Percent Auto 0.8 % (0-2); Eosinophils Absolute Auto 0.2 X10*3/uL (0.0-0.4); Eosinophils Percent Auto 2.6 % (0-4); Hematocrit 43.9 % (37.0-47.0); Hemoglobin 14.4 g/dl (12.0-16.0); Imm Gran Abs Auto 0.01 X10*3/uL (0.00-0.03); Imm Gran Pct Auto 0.2 % (0.0-0.4); Lymphocytes Absolute Auto 2.3 X10*3/uL (1.2-4.9); Lymphocytes Percent Auto 34.1 % (20-40); Mean Corpuscular HGB Conc 32.8 g/dl (31.0-35.0); Mean Corpuscular Hemoglobin 28.2 pg (27.0-33.0); Mean Corpuscular Volume 86.1 fL (80.0-98.0); Mean Platelet Volume 11.1 fL (9.4-12.3); Monocytes Absolute Auto 0.4 X10*3/uL (0.1-1.2); Monocytes Percent Auto 5.9 % (2-11); Neutrophils Absolute Auto 3.7 x10*3/uL (2.0-8.3); Neutrophils Percent Auto 56.4 % (45-73); Platelet Count 238 X10*3/uL (160-400); Red Cell Distribution Width 15.2 % (11.0-16.0); White Blood Count 6.6 X10*3/uL (4.8-10.8)
[2024-02-29 13:20] LABS: Appearance Urine Clear; Color Urine Yellow; Glucose Urine UA Negative (Negative); Leukocyte Esterase Urine Trace (Negative); Nitrite Urine Negative (Negative); PH 7.5 (5.0-9.0); Specific Gravity - Urine 1.015 (1.005-1.025); UMIC TRIGGER UACC YES; Urine Blood Negative (Negative); Urine Ketones Negative (Negative); Urine Protein Negative (Neg-Trace)
[2024-02-29 13:25] LABS: Bacteria Urine None Seen (None Seen); Hyaline Casts Urine 0-2 /LPF (0-2); RBC Urine 0-2 /HPF (0-2); Squamous Epithelial Cell Urine 0-2 /HPF (0-2); WBC Urine 0-5 /HPF (0-5)
[2024-02-29 13:33] LABS: Alanine Aminotransferase 24 U/L (0-31); Albumin Level 4.2 g/dL (3.5-5.0); Alkaline Phosphatase 94 U/L (39-117); Anion Gap 11 (12-20); Aspartate Amino Transferase 25 U/L (5-31); Bilirubin Total 0.6 mg/dL (0.0-1.0); Blood Urea Nitrogen 20 mg/dL (9-16); Calcium 9.6 mg/dL (8.4-10.2); Carbon Dioxide 25 mmol/L (22-29); Chloride 107 mmol/L (96-108); Cholesterol 205 mg/dL (<200); Estimated Glomerular Filt Rate > 60; Glucose Fasting 82 mg/dL (60-99); HDL Cholesterol 75 mg/dL (>40); LDL Cholesterol Calculated 110 mg/dL (<100); Potassium 4.3 mmol/L (3.3-5.1); Sodium 139 mmol/L (135-145); Total Protein 7.4 g/dL (6.5-8.0); Triglycerides 102 mg/dL (<150)
[2024-02-29 13:51] LABS: TSH reflex Free T4 0.59 uIU/mL (0.32-4.0); Vitamin D 25-OH Total 58.1 ng/mL (>30)
== END 2024-02-29 09:43 | disposition home or self-care (01) ==
LOC: HO.HMGCLDS 09:42
PROVIDERS: PCP Nurse Practitioner Family; Visit Provider Nurse Practitioner Family
DX: Z00.00 Encounter for general adult medical examination without abnormal findings (principal); E55.9 Vitamin D deficiency, unspecified; Z13.39 Encounter for screening examination for other mental health and behavioral disorders
CPT/HCPCS: 36415; 80053; 80061; 81001; 82306; 84443; 85025; 96127

== ENCOUNTER 2024-12-25 15:00 | Outpatient (REF) | payer BC, SELFPAY ==
--- OUTSIDE RECORDS SUMMARY | 2024-12-25 15:44 | XMS_ITS | Encounter Summary ---
Author Organization [facility] Address [address] [place] [address] Care Team Providers Care Financial Analyst Name Role Phone Placido Little NP Primary Care Provider Encounter Details Date Type Department Care Team (Latest Contact Info) Description 08/22/2024 Lab Requisition [facility] [address] [place] [address] Micky Chan MD [address] [phone] Encounter for gynecological examination (general) (routine) without abnormal findings Social History Tobacco Use Types Packs/Day Years Used Date Smoking Tobacco: Never Assessed Comments Unknown Sex and Gender Information Value Date Recorded Sex Assigned at Not on file Legal Sex Female 6:47 AM EDT Gender Identity Not on file Sexual Orientation Not on file documented as of this encounter Plan of Treatment Not on file documented as of this encounter Procedures Procedure Name Priority Date/Time Associated Diagnosis Comments PAP SMEAR Routine 08/21/2024 12:00 AM EDT Encounter for gynecological examination (general) (routine) without abnormal findings documented in this encounter Results * Pap smear (08/21/2024 12:00 AM EDT) Interpretation Negative for intraepithelial lesion or malignancy 08/23/2024 10:00 AM EDT [facility] General Categorization Negative 08/23/2024 10:00 AM EDT [facility] Specimen Adequacy Satisfactory for evaluation, endocervical/leon sformation zone component present 08/23/2024 10:00 AM EDT [facility] Pap Methodology Liquid Based Pap Test 08/23/2024 10:00 AM EDT [facility] Disclaimer The Pap test is a screening test which carries an inherent false negative rate. These test results should be correlated with the patient's clinical findings and history. This Pap test was processed using an automated screening system. Technical cytopathology services provided by [facility], at [address] [place] [address] (CLIA # [id number]/Ju Nair MD, Director Fixed Income.) 08/23/2024 10:00 AM EDT [facility] Console Pap Interpretation Reported 08/23/2024 10:00 AM EDT [facility] Brushing/Spatula Cervix uteri structure / Unknown 08/21/2024 08/22/2024 6:57 AM EDT us Micky Chan MD LAB CYTOLOGY ORDERABLES Final Result [facility] [address] [place] [address], documented in this encounter Visit Diagnoses Diagnosis Encounter for gynecological examination (general) (routine) without abnormal findings documented in this encounter Care Teams Financial Analyst Relationship Specialty Start Date End Date Placido Little NP PCP - General Family Medicine 08/22/24 documented as of this encounter
== END 2024-12-25 15:01 | disposition home or self-care (01) ==
LOC: HO.MAMMO 15:00
PROVIDERS: PCP Nurse Practitioner Family; Visit Provider Obstetrics & Gynecology
DX: Z12.31 Encounter for screening mammogram for malignant neoplasm of breast (principal)
CPT/HCPCS: 77063; 77067

== ENCOUNTER → 2024-12-25 15:15 | Outpatient (BNV) | payer BC, SELFPAY | PROVIDERS: PCP Nurse Practitioner Family; Visit Provider Internal Medicine | DX: Z12.31 Encounter for screening mammogram for malignant neoplasm of breast (principal) | CPT/HCPCS: 77063; 77067 ==

== ENCOUNTER 2025-02-27 11:17 | Outpatient (AMB) | payer BC, SELFPAY ==
[2025-02-27 11:27] VITALS: BP 118/80; PULSE 82; TEMP 36.4; O2SAT 98; BMI 22.3
--- NOTE | 2025-02-27 11:27 | AM.OFFWIN_ITS ---
Intake Vital Signs 02/27/25 11:27 Height 5 ft Weight 114 lb BMI 22.3 BP 118/80 Blood Pressure Location Lt brachial Position Sitting Pulse 82 Pulse Source Pulse Oximeter Temp 97.5 F Temp Source Oral Pulse Oximetry (%) 98 Oxygen Delivery Method Room Air Intake Visit Reasons: ep stomach ache dizziness Intake Note: pt presents after an episode this morning of facial flushing, dizzy, weakness, hands were tingly and cold, severe stomach which led her to an urgent bowel movement-lower abdominal pain remains Patient Tobacco Use Status: Never used Tobacco Allergies No Known Allergies Allergy (Verified 02/27/25 11:33) Do you need a note to return to daycare/school/sports/work: No HPI HPI Comments History of Present Illness Details 64 y/o Female Patient who presents [facility] with c/o not feeling well. Pt reports this morning at 930am she started feeling Dizzy, Facial flushing, Whole Body weakness, tingly/cold limbs and stomach cramping. Reports having one Episode of loose stools. Denies Blood in stools. Denies bladder or vaginal symptoms. Denies nausea or vomiting. Denies URI symptoms. Reports now the other symptoms have resolved, she still has Abdominal cramping. [facility] Medical History (Updated 02/27/25 @ 11:54 by Beth Mcmullen NP) Acute respiratory disease Tubular adenoma History of positive PPD CKD (chronic kidney disease), stage III Adenocarcinoma of rectosigmoid junction Hypercholesterolemia Hypothyroidism Surgical History Hx of appendectomy Hx of bilateral breast reduction surgery H/O colonoscopy Family History Father Diabetes Mother Ruptured, aorta Social History Housing: House Are you a primary hourly caregiver to a significant other at home: No Do you presently have visiting nurse or other home services: No Alcohol intake: current Alcohol intake frequency: holidays/special occasions only Patient Tobacco Use Status: Never used Tobacco e-Cigarette/Vaping Use: Never Used Second Hand Smoke Exposure: Yes Current occupational status: employed Cognitive needs: No Hearing needs: No Vision needs: Yes Review of Systems Const All systems reviewed & are unremarkable except as noted in HPI and below Physical Exam Vital Signs: Last Vital Signs Temp 97.5 F 02/27/25 11:27 Pulse 82 02/27/25 11:27 BP 118/80 02/27/25 11:27 Pulse Ox 98 02/27/25 11:27 Oxygen Delivery Method Room Air 02/27/25 11:27 BMI result Body Mass Index 22.3 Const General: no acute distress Nutritional Appearance: well nourished Orientation/consciousness: patient oriented x3 HEENT Head: Yes normocephalic Ears: external ears normal and TM's normal bilaterally General nose exam: Normal external nose present Face and sinus: Yes sinuses nontender Mouth: moist mucous membranes Throat: Yes uvula midline GI Inspection: Yes normal to inspection Palpation (GI): Soft to palpation, not firm, nontender, no guarding, not rigid, No hepatosplenomegaly present and no hernias Auscultation: normal bowel sounds Rectal Exam - Female: deferred Neuro General: patient oriented x3, gait normal and moves all extremities Psych Speech and movement: Normal speech and movement present Assessment & Plan Assessment & Plan (1) Acute respiratory disease: Code(s): J06.9 - Acute upper respiratory infection, unspecified Plan: Ordered Resp Path panel Advised to use OTC remedies RTC if not better. Orders: Orders Resp Pathogen Panel - [facility] Today J06.9 - Acute upper respiratory infection, unspecified Coding Level of Care Code Est Pt Level 4 (75838) Diagnoses Acute respiratory disease J06.9 Time Spent (min) 20
--- OUTSIDE RECORDS SUMMARY | 2025-02-27 13:10 | XMS_ITS | Encounter Summary ---
Author Organization [employer] [facility] Address [address] [place] [address] Care Team Providers Care Management Professionals Name Role Phone Placido Little NP Primary Care Provider Encounter Details Date Type Department Care Team (Latest Contact Info) Description 08/22/[address] [facility] [address] [place] [address] Micky Chan MD [address] [phone] Encounter for gynecological examination (general) (routine) without [...] lesion or malignancy 08/23/2024 10:00 AM EDT [facility] General Categorization Negative 08/23/2024 10:00 AM EDT [facility] Specimen Adequacy Satisfactory for evaluation, endocervical/leon sformation zone component present 08/23/2024 10:00 AM EDT [facility] Pap Methodology Liquid Based Pap Test 08/23/2024 10:00 AM EDT [facility] Disclaimer The Pap test is a screening test which carries an inherent false negative rate. These test results should be correlated with the patient's clinical findings and history. This Pap test was processed using an automated screening system. Technical cytopathology services provided by [facility], at [address] [place] [address] (CLIA # [id number]/Ju Nair MD, Cryptologic Supervisor.) 08/23/2024 10:00 AM EDT [facility] Console Pap Interpretation Reported 08/23/2024 10:00 AM EDT [facility] Brushing/Spatula Cervix uteri structure / Unknown 08/21/2024 08/22/2024 6:57 AM EDT us Micky Chan MD LAB CYTOLOGY ORDERABLES Final Result [facility] [address] [place] [address], documented in this encounter Visit Diagnoses Diagnosis Encounter for gynecological examination (general) (routine) without abnormal findings documented in this encounter Care Teams Management Professionals Relationship Specialty Start Date End Date Placido Little NP PCP - General Family Medicine 08/22/24 documented as of this encounter
--- OUTSIDE RECORDS SUMMARY | 2025-02-27 13:10 | XMS_ITS | Clinical Summary ---
Author Organization [address] [facility] Address [address] [place] [address] Phone Care Team Providers Care Interviewing Clerk Name Role Phone Placido Little NP Primary Care Provider [phone] Social History Tobacco Use Types Packs/Day Years Used Date Smoking Tobacco: Never Assessed Comments Unknown Sex and Gender Information Value Date Recorded Sex Assigned at Not on file Legal Sex Female 6:47 AM EDT Gender Identity Not on file Sexual Orientation Not on file Plan of Treatment Health Maintenance Due Date Last Done Comments Breast Cancer Screening 1962 DTaP,Tdap,and Td Vaccines (1 - Tdap) 1981 Pneumococcal Vaccine: 50+ Ye ars (1 of 1 - PCV) 2012 Zoster Vaccines (1 of 2) 2012 Depression Screening 05/29/2024 Colorectal Cancer Screening: Colonoscopy 08/22/2024 HIV Screening 08/22/2024 Hepatitis C Screening 08/22/2024 Social Influencers of Health Screening 08/22/2024 COVID-19 Vaccine (1 - 2023-2 5 season) 2025 Influenza Vaccine (#1) 2025 Cervical Cancer Screening: P ap Smear 08/22/2027 08/21/2024 RSV Immunization Adult Patie nts (1 - 1-dose 75+ series) 2037 HIB Vaccines Aged Out No longer eligi ble based on patient's age to complete this topic HPV Vaccines Aged Out No longer eligi ble based on patient's age to complete this topic Hepatitis A Vaccines Aged Out No long er eligible based on patient's age to complete this topic Hepatitis B Vaccines Aged Out No long er eligible based on patient's age to complete this topic IPV Vaccines Aged Out No longer eligi ble based on patient's age to complete this topic MMR Vaccines Aged Out No longer eligi ble based on patient's age to complete this topic Meningococcal ACWY Vaccine Aged Out N o longer eligible based on patient's age to complete this topic Meningococcal B Vaccine Aged Out No l onger eligible based on patient's age to complete this topic RSV Immunization Patients Un oma 20 months Aged Out No longer eligible b ased on patient's age to complete this topic Varicella Vaccines Aged Out No longer eligible based on patient's age to complete this topic Procedures Procedure Name Priority Date/Time Associated Diagnosis Comments PAP SMEAR Routine 08/21/2024 12:00 AM EDT Encounter for gynecological examination (general) (routine) without abnormal findings from Last 3 Months or Most Recently Relevant to Health Maintenance Results * Pap smear (08/21/2024 12:00 AM EDT) Interpretation Negative for intraepithelial lesion or malignancy 08/23/2024 10:[address] [facility] General Categorization Negative 08/23/2024 10:[address] [facility] Specimen Adequacy Satisfactory for evaluation, endocervical/leon sformation zone component present 08/23/2024 10:[address] [facility] Pap Methodology Liquid Based Pap Test 08/23/2024 10:[address] [facility] Disclaimer The Pap test is a screening test which carries an inherent false negative rate. These test results should be correlated with the patient's clinical findings and history. This Pap test was processed using an automated screening system. Technical cytopathology services provided by [facility], at [address] [place] [address] (CLIA # [id number]/Ju Nair MD, Optometrist/Practice Owner.) 08/23/2024 10:[address] [facility] Console Pap Interpretation Reported 08/23/2024 10:[address] [facility] Brushing/Spatula Cervix uteri structure / Unknown 08/21/2024 08/22/2024 6:57 AM EDT us Micky Chan MD LAB CYTOLOGY ORDERABLES Final Result [facility] [address] [place] [address], from Last 3 Months or Most Recently Relevant to Health Maintenance Insurance [facility] Care Teams Interviewing Clerk Relationship Specialty Start Date End Date Placido Little NP PCP - General Family Medicine 08/22/24
== END 2025-02-27 11:54 | disposition home or self-care (01) ==
PROVIDERS: PCP Nurse Practitioner Family; Visit Provider Nurse Practitioner Family
DX: J06.9 Acute upper respiratory infection, unspecified (principal)

== ENCOUNTER 2025-02-27 11:17 | Outpatient (REF) | payer BC, SELFPAY ==
[2025-02-27 14:54] LABS: Chlamydia pneumoniae PCR Not Detected (Not Detect.); Coronavirus 229E PCR Not Detected (Not Detect.); Coronavirus HKU1 PCR Not Detected (Not Detect.); Coronavirus NL63 PCR Not Detected (Not Detect.); Coronavirus OC43 PCR Not Detected (Not Detect.); RSV PCR Not Detected (Not Detect.); Rhino/Enterovirus PCR Not Detected (Not Detect.)
[2025-02-27 15:22] LABS: Influenza A H1 PCR Not Detected (Not Detect.); Influenza A H1-2009 PCR Not Detected (Not Detect.); Influenza A H3 PCR Not Detected (Not Detect.); SARS-CoV-2 PCR Not Detected (Not Detect.)
== END 2025-02-27 11:18 | disposition home or self-care (01) ==
LOC: HO.LAB 11:17
PROVIDERS: PCP Nurse Practitioner Family; Visit Provider Nurse Practitioner Family
DX: J06.9 Acute upper respiratory infection, unspecified (principal); R42 Dizziness and giddiness; R53.1 Weakness; R10.9 Unspecified abdominal pain; J00 Acute nasopharyngitis [common cold]
CPT/HCPCS: 87633

== ENCOUNTER 2025-04-09 09:02 | Outpatient (REF) | payer BC, SELFPAY ==
[2025-04-09 13:16] LABS: Appearance Urine Clear; Glucose Urine UA Negative (Negative); PH 7.0 (5.0-9.0); Specific Gravity - Urine 1.025 (1.005-1.025)
[2025-04-09 14:01] LABS: MANUAL DIFF FLAG NO
[2025-04-09 14:05] LABS: Hematocrit 45.1 % (37.0-47.0); Hemoglobin 14.9 g/dl (12.0-16.0); Imm Gran Abs Auto 0.01 X10*3/uL (0.00-0.03); Imm Gran Pct Auto 0.2 % (0.0-0.4); Lymphocytes Absolute Auto 2.1 X10*3/uL (1.2-4.9); Mean Corpuscular HGB Conc 33.0 g/dl (31.0-35.0); Mean Corpuscular Hemoglobin 28.5 pg (27.0-33.0); Mean Corpuscular Volume 86.4 fL (80.0-98.0); NRBC Abs Auto 0.000 X10*3/uL (0.0-0.012); NRBC Pct Auto 0.0 /100WBC (0.0-0.2); Platelet Count 258 X10*3/uL (160-400); Red Blood Count 5.22 X10*6/uL (4.20-5.50); White Blood Count 6.2 X10*3/uL (4.8-10.8)
[2025-04-09 14:35] LABS: Alanine Aminotransferase 25 U/L (0-31); Albumin Level 4.5 g/dL (3.5-5.0); Alkaline Phosphatase 114 U/L (39-117); Anion Gap 8 (12-20); Aspartate Amino Transferase 28 U/L (5-31); Blood Urea Nitrogen 26 mg/dL (9-16); Calcium 9.2 mg/dL (8.4-10.2); Carbon Dioxide 27 mmol/L (22-29); Chloride 108 mmol/L (96-108); Cholesterol 204 mg/dL (<200); Estimated Glomerular Filt Rate 56; HDL Cholesterol 68 mg/dL (>40); Potassium 4.3 mmol/L (3.3-5.1); Sodium 139 mmol/L (135-145); Total Protein 7.3 g/dL (6.5-8.0); Triglycerides 136 mg/dL (<150)
== END 2025-04-09 09:03 | disposition home or self-care (01) ==
LOC: HO.HMGCLDS 09:02
PROVIDERS: PCP Nurse Practitioner Family; Visit Provider Nurse Practitioner Family
DX: Z00.00 Encounter for general adult medical examination without abnormal findings (principal); E55.9 Vitamin D deficiency, unspecified; Z78.0 Asymptomatic menopausal state
CPT/HCPCS: 36415; 80053; 80061; 81003; 82306; 84443; 85025; 96127

== ENCOUNTER 2025-04-09 09:02 | Outpatient (AMB) | payer BC, SELFPAY ==
[2025-04-09 09:09] VITALS: BP 124/88; PULSE 75; TEMP 36.5; O2SAT 96; BMI 22.1
--- NOTE | 2025-04-09 09:09 | MHC.PC.OV ---
Vital Signs 04/09/25 09:09 Height 5 ft Weight 113 lb BMI 22.1 BP 124/88 Blood Pressure Location Lt brachial Position Sitting Pulse 75 Pulse Source Pulse Oximeter Temp 97.7 F Temp Source Oral Pulse Oximetry (%) 96 Oxygen Delivery Method Room Air Intake Visit Reasons: PE Mental Health Specialist Required: No Accompanied by: Self / Same As Patient Allergies No Known Allergies Allergy (Verified 04/09/25 09:12) Tobacco use date assessed: 04/09/25 Dental Screening Dental Screen Date: 04/09/25 Did you have a dental visit in the last 12 months?: Yes Did you have a dental problem in the last 6 months where you did not have access to dental care?: No Was dental information given to patient?: Patient has dentist HPI PE HPI Details History of Present Illness The patient is a 64-year-old female presenting for a physical exam. She reports doing well and has a history of vitamin D deficiency. Her mammogram and colon screening are up to date, and she sees a tack puller machine for Pap smears. Health Maintenance The patient's mammogram and colon screening are current. She has an established tack puller machine for Pap smears. An order for a bone density scan will be submitted. declines vaccinations Social History Review of Systems - Constitutional: Reports feeling well. - Cardiovascular: Denies chest pain. - Respiratory: Denies shortness of breath. - Gastrointestinal: Denies abdominal pain, blood in stool, constipation, and diarrhea. - Psychiatric: Denies suicidal or homicidal ideation. Physical Exam General: Cooperative, healthy appearing, comfortable, no acute distress and well developed Orientation: Patient oriented x3 Limitations: No limitations Head: Normal to inspection Ears: Hearing grossly normal bilaterally Nose: Normal external nose present Face and sinus: Normal facial exam Eyes: Appearance normal, both eyes and all related structures Neck: Normal visual inspection and Yes full ROM Respiratory: Normal respiratory effort and able to speak in complete sentences. Clear to auscultation bilaterally Cardiovascular: Regular rate and rhythm. Normal S1 and S2 GI: Normal to inspection. Soft to palpation and nontender Skin: No rashes or lesions noted Neuro: Patient oriented x3 Extremities: Normal to inspection Results Plan 1. Annual Physical Exam The patient presented for a physical exam, which was benign. Plan includes ordering fasting labs and a bone density scan. 2. Vitamin D Deficiency Continue to monitor the patient's existing vitamin D deficiency. Discussion Notes I informed the patient that her physical exam was completely benign. I advised her that I will be placing an order for a bone density scan and for fasting labs to be done today. Patient Instructions - Please go to the lab for fasting blood work today. - We will place an order for you to get a bone density scan. - Your mammogram and colon cancer screenings are up to date. PFSH Medical History Acute respiratory disease Tubular adenoma History of positive PPD CKD (chronic kidney disease), stage III Adenocarcinoma of rectosigmoid junction Hypercholesterolemia Hypothyroidism Surgical History Hx of appendectomy Hx of bilateral breast reduction surgery H/O colonoscopy Family History Father Diabetes Mother Ruptured, aorta Social History Housing: House Are you a primary career resource specialist to a significant other at home: No Do you presently have visiting nurse or other home services: No Alcohol intake: current Alcohol intake frequency: holidays/special occasions only Patient Tobacco Use Status: Never used Tobacco e-Cigarette/Vaping Use: Never Used Second Hand Smoke Exposure: Yes Current occupational status: employed Cognitive needs: No Hearing needs: No Vision needs: Yes Questionnaire PHQ-9 Over the last 2 weeks, how often have you been bothered by any of the following problems? 1. Little interest or pleasure in doing things: not at all 2. Feeling down, depressed, or hopeless: not at all 3. Trouble falling or staying asleep, or sleeping too much: not at all 4. Feeling tired or having little energy: not at all 5. Poor appetite or overeating: not at all 6. Feeling bad about yourself - or that you are a failure or have let yourself or your family down: not at all 7. Trouble concentrating on things, such as reading the newspaper or watching television: not at all 8. Moving or speaking so slowly that other people could have noticed. Or the opposite - being so fidgety or restless that you have been moving around a lot more than usual: not at all 9. Thoughts that you would be better off or of hurting yourself in some way: not at all Total score: 0 Depression Screening Interpretation: Negative Depression Screening Done: Yes 13214 - PHQ-9 Billing: Yes Source: Developed by Drs. Mario Grossman, Nanci Thakkar, David Miller and colleagues, with an educational kellen from [employer]. Thrive Questionnaire Date Thrive assessed: 04/02/25 I am a: Patient What is your living situation today?: I have a steady place to live Within the past 12 months, did the food you bought not last and you didn't have the money to get more?: Never true Within the past 12 months, did you worry whether your food would run out before you got money to buy more?: Never true Do you have trouble paying for medicines?: No Do you have trouble getting transportation to medical appointments?: No Do you have trouble paying your heating and electricity bill?: No Do you have trouble taking care of your child, family member or friend?: No Do you have trouble with day-to-day activities such as bathing, preparing meals, shopping, managing finances, etc.?: No Are you currently unemployed and looking for a job?: No Are you interested in more education?: No Please select the resources that you would like help with: None Currently or been in a relationship where the following occur: No concerns reported THRIVE Score: 0 AUDIT C Alcohol Use Questionnaire (AUDIT-C) 1. How often do you have a drink containing alcohol?: Monthly or less 2. How many drinks containing alcohol do you have on a typical day when you are drinking?: 1 or 2 3. How often do you have six or more drinks on one occasion?: Never Total Score: 1 GREG-7 AMB Questionnaire GREG-7 Date GREG - 7 assessed: 04/09/25 Feeling nervous, anxious, or on edge: 0 = Not at all Not being able to stop or control worryin = Not at all Worrying too much about different things: 0 = Not at all Trouble relaxin = Not at all Being so restless that it is hard to sit still: 0 = Not at all Becoming easily annoyed or irritable: 0 = Not at all Feeling afraid as if something awful might happen: 0 = Not at all Total GREG-7 score (0-4 normal; 5-9 mild; 10-14 moderate; 15-21 severe): 0 Source: Developed by Drs. Mario Grossman, Nanci Thakkar, David Miller and colleagues, with an educational kellen from [employer]. GREG-7 Assessment Billing GREG-7 Assessment Tool: GREG-7 Assessment 74415 Physical exam (Primary Care) Vital Signs: Last Vital Signs Temp 97.7 F 04/09/25 09:09 Pulse 75 04/09/25 09:09 BP 124/88 04/09/25 09:09 Pulse Ox 96 04/09/25 09:09 Oxygen Delivery Method Room Air 04/09/25 09:09 BMI result Body Mass Index 22.1 Tobacco/Smoking Status: Tobacco use Status Tobacco use date assessed 04/09/25 04/09/25 09:15 Patient Tobacco Use Status Never used Tobacco 04/09/25 09:15 e-Cigarette/Vaping Use Never Used 04/09/25 09:15 PHQ-9: PHQ-9 Score PHQ-9: Total score 0 04/09/25 09:15 Depression Screening Interpretation: Negative Thrive Assessment: Date of Thrive Assessment Date Thrive assessed 04/02/25 04/09/25 09:15 Currently or been in a relationship where the following occur: No concerns reported Coding Level of Care Code Est Pt Prev Care 40-64y(89503) Diagnoses Annual physical exam Z00.00 Vitamin D deficiency E55.9 Postmenopausal Z78.0 Additional Codes GREG-7 Assessment Billing - GREG-7 Assessment Tool: GREG-7 Assessment 94972 ([id number]) PHQ-9 - 74809 - PHQ-9 Billing: Yes ([id number]) Assessment & Plan Assessment & Plan (1) Annual physical exam: Code(s): Z00.00 - Encounter for general adult medical examination without abnormal findings Category: Medical (2) Vitamin D deficiency: Code(s): E55.9 - Vitamin D deficiency, unspecified Category: Medical (3) Postmenopausal: Code(s): Z78.0 - Asymptomatic menopausal state Category: Medical Plan . Orders: Orders Complete Blood Count Auto Diff Today Z00.00 - Encounter for general adult medical examination without abnormal findings TSH reflex Free T4 Today Z00.00 - Encounter for general adult medical examination without abnormal findings UA CC w/rflx Micro + Cult Today Z00.00 - Encounter for general adult medical examination without abnormal findings Lipid Panel Today Z00.00 - Encounter for general adult medical examination without abnormal findings Vitamin D 25-OH Total Today E55.9 - Vitamin D deficiency, unspecified Comprehensive [place]. Panel Fast Today Z00.00 - Encounter for general adult medical examination without abnormal findings XR DEXA axial skeleton Today E55.9 - Vitamin D deficiency, unspecified, Z78.0 - Asymptomatic menopausal state
--- OUTSIDE RECORDS SUMMARY | 2025-04-09 09:45 | XMS_ITS | Encounter Summary ---
Author Organization [facility] Address [address] [place] [address] Care Team Providers Care Burner Hand Name Role Phone Placido Little NP Primary Care Provider Encounter Details Date Type Department Care Team (Latest Contact Info) Description 08/22/[address] [facility] [address] [place] [address] Micky Chan MD [address] [phone] Encounter for gynecological examination (general) (routine) without [...] lesion or malignancy 08/23/2024 10:00 AM EDT [facility] General Categorization Negative 08/23/2024 10:00 AM EDT [facility] Specimen Adequacy Satisfactory for evaluation, endocervical/leon sformation zone component present 08/23/2024 10:00 AM EDT [facility] Pap Methodology Liquid Based Pap Test 08/23/2024 10:00 AM EDT [facility] Disclaimer The Pap test is a screening test which carries an inherent false negative rate. These test results should be correlated with the patient's clinical findings and history. This Pap test was processed using an automated screening system. Technical cytopathology services provided by [facility], at [address] [place] [address] (CLIA # [id number]/Ju Nair MD, Assistant Press Operator.) 08/23/2024 10:00 AM EDT [facility] Console Pap Interpretation Reported 08/23/2024 10:00 AM EDT [facility] Brushing/Spatula Cervix uteri structure / Unknown 08/21/2024 08/22/2024 6:57 AM EDT us Micky Chan MD LAB CYTOLOGY ORDERABLES Final Result [facility] [address] [place] [address], documented in this encounter Visit Diagnoses Diagnosis Encounter for gynecological examination (general) (routine) without abnormal findings documented in this encounter Care Teams Burner Hand Relationship Specialty Start Date End Date Placido Little NP PCP - General Family Medicine 08/22/24 documented as of this encounter
--- OUTSIDE RECORDS SUMMARY | 2025-04-09 09:45 | XMS_ITS | Clinical Summary ---
Author Organization [facility] Address [address] [place] [address] Phone Care Team Providers Care Telegraph Inspector Name Role Phone Placido Little NP Primary Care Provider Social History Tobacco Use Types Packs/Day Years Used Date Smoking Tobacco: Never Assessed Comments Unknown Sex and Gender Information Value Date Recorded Sex Assigned at Not on file Legal Sex Female 6:47 AM EDT Gender Identity Not on file Sexual Orientation Not on file Plan of Treatment Health Maintenance Due Date Last Done Comments Breast Cancer Screening 1962 Colorectal Cancer Screening: Colonoscopy 1962 DTaP,Tdap,and Td Vaccines (1 - Tdap) 1981 Pneumococcal Vaccine: 50+ Ye ars (1 of 1 - PCV) 2012 Zoster Vaccines (1 of 2) 2012 Depression Screening 05/29/2024 HIV Screening 08/22/2024 Hepatitis C Screening 08/22/2024 [...] intraepithelial lesion or malignancy 08/23/2024 10:[address] [facility] General Categorization Negative 08/23/2024 10:[address] [facility] Specimen Adequacy Satisfactory for evaluation, endocervical/leon sformation zone component present 08/23/2024 10:[address] [facility] Pap Methodology Liquid Based Pap Test 08/23/2024 10:[address] [facility] Disclaimer The Pap test is a screening test which carries an inherent false negative rate. These test results should be correlated with the patient's clinical findings and history. This Pap test was processed using an automated screening system. Technical cytopathology services provided by [facility], at [address] [place] [address] (CLIA # [id number]/Ju Nair MD, Applied Behavior Science Specialist.) 08/23/2024 10:[address] [facility] Console Pap Interpretation Reported 08/23/2024 10:[address] [facility] Brushing/Spatula Cervix uteri structure / Unknown 08/21/2024 08/22/2024 6:57 AM EDT us Micky Chan MD LAB CYTOLOGY ORDERABLES Final Result [facility] [address] [place] [address], from Last 3 Months or Most Recently Relevant to Health Maintenance Insurance [email or web address] [[email or web address] Care Teams Telegraph Inspector Relationship Specialty Start Date End Date Placido Little NP PCP - General Family Medicine 08/22/24
== END 2025-04-09 09:58 | disposition home or self-care (01) ==
LOC: HO.HMCC 09:03
PROVIDERS: PCP Nurse Practitioner Family; Visit Provider Nurse Practitioner Family
DX: Z00.00 Encounter for general adult medical examination without abnormal findings (principal); E55.9 Vitamin D deficiency, unspecified; Z78.0 Asymptomatic menopausal state